=== PATIENT | female | born 1965 | race Caucasian/White ===

== ENCOUNTER 2023-10-21 06:56 | Outpatient (OUT) | payer BC, SELFPAY ==
--- NOTE | 2023-10-21 06:58 | MM_ITS ---
Patient Name: ESTELLA SHAH MR#: [id number] : 1965 Exam Date: 10/21/2023 Ordering Doctor: Non-Staff Physician RADIOLOGY REPORT PROCEDURE: MM TOMOSYNTHESIS SCREENING BI COMPARISON: MG MAMM SCREEN 3D [place] CAD, 10/12/2021. MG MAMM SCREEN 3D [place] CAD, 10/19/2022. INDICATIONS: Screening Calculator Name NCI Breast Cancer Risk Assessment Tool 5 Year Breast Cancer Risk 1.10% Lifetime Breast Cancer Risk 6.70% Personal Breast Cancer No Personal Ovarian Cancer No Treatments None Family Cancers None LOCATION: [facility] BREAST COMPOSITION: Scattered areas fibroglandular density. FINDINGS: DIAGNOSTIC CATEGORY 1--NEGATIVE. NO CHANGE FROM COMPARISON ASSESSMENT. Scattered benign-appearing calcifications are present. Scattered benign-appearing lymph nodes are present. RIGHT BREAST: No significant suspicious finding. LEFT BREAST: No significant suspicious finding. RECOMMENDATIONS: ROUTINE MAMMOGRAM AND CLINICAL EVALUATION IN 12 MONTHS. PLEASE NOTE: A NORMAL MAMMOGRAM DOES NOT EXCLUDE THE POSSIBILITY OF BREAST CANCER. A CLINICALLY SUSPICIOUS PALPABLE LUMP SHOULD BE BIOPSIED. Dictated by: Drew Flowers MD on 10/24/2023 at 07:54 Approved by: Drew Flowers MD on 10/24/2023 at 07:55
== END 2023-10-21 06:57 | disposition home or self-care (01) ==
LOC: MAMMO 06:56
PROVIDERS: PCP Internal Medicine
DX: Z12.31 Encounter for screening mammogram for malignant neoplasm of breast (principal)
CPT/HCPCS: 77063; 77067

== ENCOUNTER 2023-10-21 07:17 | Outpatient (OUT) | payer BC, SELFPAY ==
[2023-10-21 07:59] LABS: Chol HDL Ratio 2.2; Cholesterol 116 mg/dL (<=200); Glucose 88 mg/dL (74-106); HDL Cholesterol 53 mg/dL (40-60); Thyroid Stimulating Hormone 2.003 uIU/mL (0.358-3.740); Triglycerides 55 mg/dL (<=150)
== END 2023-10-21 07:18 | disposition home or self-care (01) ==
LOC: LAB 07:18
PROVIDERS: PCP Internal Medicine
DX: Z00.00 Encounter for general adult medical examination without abnormal findings (principal); Z12.31 Encounter for screening mammogram for malignant neoplasm of breast
CPT/HCPCS: 36415; 77063; 77067; 80061; 82306; 82947; 84443

== ENCOUNTER 2023-11-22 13:36 | Outpatient (OUT) | payer BC, SELFPAY ==
--- OUTSIDE RECORDS SUMMARY | 2023-11-22 13:57 | XMS_ITS | CCD ---
Author Name Unknown Address [address] [place] [address] Organization [facility] Care Team Providers Care Licensed Practical Nurse Clinic Nurse Name Role Phone LUPILLO, DR LAMBERT Admitting Unavailable LUPILLO, DR LAMBERT Primary Care Unavailable LUPILLO, DR LAMBERT Consulting Unavailable LUPILLO, DR LAMBERT Attending Unavailable LUPILLO, DR LAMBERT Primary Care Unavailable LUPILLO, DR LAMBERT Consulting Unavailable LUPILLO, DR LAMBERT Attending Unavailable BALL, DR LAMBERT Admitting Unavailable BALL, DR LAMBERT Admitting Unavailable LUPILLO, DR LAMBERT Primary Care Unavailable LUPILLO, DR LAMBERT Consulting Unavailable LUPILLO, DR LAMBERT Attending Unavailable LUPILLO, DR LAMBERT Primary Care Unavailable ESTEFANIA, DR MCBRIDE Attending Unavailable ERNÉ, DR TABATHA Lowery Consulting Unavailable ESTEFANIA, DR MCBRIDE Admitting Unavailable CROW, DR STANFORD Consulting Unavailable Hernesto Wesley Unavailable HERNESTO WESLEY Primary Care Physician Doug DIA Attending Unavailable HERNESTO WESLEY Referring Unavailable Allergies Allergy Classification Reported Allergen(s) Allergy Type Date of Onset Reaction(s) Facility (14 sources) Acetaminophen / HYDROcodone; Translations: [Acetaminophen / Hydrocodone] Drug Allergy Vomiting (disorder) General Surgery [facility] (14 sources) Lisinopril; Translations: [lisinopril] Drug Allergy Cough (finding) General Surgery [place] (5 sources) patient allergy list reviewed by nurse or physicia Propensity to adverse reactions 04-12-20 14 Comment:Done [facility] Other (5 sources) Vicodin *ANALGESICS - OPIOID* Propensity to adverse reactions Unknown [facility] Other Medications Current Medications Medication Drug Class(es) Dates Sig (Normalized) Sig (Original) amLODIPine 5 mg oral tablet (13 sources) Dihydropyridine Calcium Channel Daphne Start: 11-09-2023 take 1 tablet by mouth once daily amLODIPine 5 mg Tab 5 mg = 1 tab(s), Oral, Daily, Refills(s) 0 Start Date: 11/09/23 Status: Ordered amLODIPine Besyl ate 5 MG TAKE 1 TABLET DAILY Orally Once a day for 90 days Active 24 hr amphetamine aspartate 2.5 mg / amphetamine sulfate 2.5 mg / dextroamphetamine saccharate 2.5 mg / dextroamphetamine sulfate 2.5 mg extended release oral capsule (5 sources) Central Nervous System Stimulant Start: 04-28-2023 take 1 capsule by mouth every twenty-four hours Adderall XR 10 MG 1 capsule in the morning Orally Once a day for 30 days Apr, Active Start: 04-28-2023 take 1 capsule by [facility] every twenty-four hours Adderall XR 5 MG 1 capsule in the morning Orally Once a day for 30 days Apr, Active Start: 04-12-2023 take 1 capsule by [facility] every twenty-four hours Adderall XR 15 MG 1 capsule in the morning Orally Once a day for 30 days start 04/12Apr, Active atorvastatin 40 mg oral tablet (13 sources) HMG-CoA Reductase Inhibitor Start: 11-09-2023 take 1 tablet by mouth once daily atorvastatin 40 mg Tab 40 mg = 1 tab(s), Oral, Daily, Refills(s) 0 Start Date: 11/09/23 Status: Ordered Atorvastatin Damien cium 40 MG TAKE 1 TABLET BY MOUTH ONCE DAILY IN THE EVENING Orally Once a day for 90 days Active escitalopram 10 mg oral tablet (9 sources) Serotonin Reuptake Inhibitor Start: 10-13-2022 take 1 tablet by mouth every twenty-four hours Escitalopram Oxalate 10 MG 1 tablet Orally Once a day for 30 days Oct, Active estradiol 0.5 mg oral tablet (4 sources) Estrogen Start: 11-09-2023 take 1 tablet by mouth once daily estradiol 0.5 mg Tab 0.5 mg = 1 tab(s), Oral, Daily, Refills(s) 0 Start Date: 11/09/23 Status: [facility]-four hours Estradiol 0.5 MG 1 tablet once a day Active Hair, Skin, & Nails Gummies (1 source) Start: 11-15-2023 Hair, Skin, & Nails Gummies 2, Chewed, Daily, Refill(s) 0 Start Date: 11/15/23 Status: Ordered LORazepam 0.5 mg oral tablet (12 sources) Benzodiazepine Start: 10-18-2023 LORazepam 0.5 MG 1 tablet Orally before flying for 2 days Oct, Active Start: 10-14-2022 take 1 tablet by barbara th every eight hours as needed for anxiety LORazepam 0.5 MG 1 tablet Orally every 8 hours PRN anxiety for 30 days Oct, Active Magnesium glycinate (1 source) Start: 11-15-2023 magnesium glycinate 200 mg oral tablet 400 mg = 2 tab(s), Oral, Daily, Refills(s) 0 Start Date: 11/15/23 Status: Ordered meloxicam 15 mg oral tablet (9 sources) Nonsteroidal Anti-inflammatory Drug take 1 tablet by mouth every twenty-four hours Meloxicam 15 MG 1 tablet Orally Once a day Active metroNIDAZOLE 7.5 mg/ml topical cream (6 sources) Nitroimidazole Antimicrobial Start: 12-08-2022 metroNIDAZOLE 0.75 % 1 application Externally Twice a day for 30 days Dec, Active Start: 12-08-2022 metroNIDAZOLE 0.75 % 1 application Externally Twice a day for 30 days Dec, Active Problems Active Problems Problem Classification Problem Date Documented Da te Episodic/Chronic Acute bronchitis (10 sources) Acute bronchitis; Translations: [Acute bronchitis, unspecified] Onset: 04-12-2014 Episodic Anxiety disorders (20 sources) Acute stress disorder; Translations: [Acute stress reaction] Chronic Attention-deficit, conduct, and disruptive behavior disorders (18 sources) Attention deficit hyperactivity disorder, predominantly inattentive type; Translations: [Attention-deficit hyperactivity disorder, predominantly inattentive type] Onset: 02-05-2015 11-09-2023 Chronic Attention-deficit, conduct, and disruptive behavior disorders (1 source) Attention-deficit hyperactivity disorder, predominantly inattentive type Chronic Cardiac and circulatory congenital anomalies (20 sources) Congenital insufficiency of aortic valve; Translations: [Bicuspid aortic valve] Onset: 11-16-2022 Chronic Disorders of lipid metabolism (20 sources) Pure hypercholesterolemi a, unspecified; Translations: [Hypercholesterolem ia] Onset: 01-30-2022 Chronic Disorders usually diagnosed in infancy, childhood, or adolescence (5 sources) Behavioral and emotional disorder with onset in childhood; Translations: [Other specified behavioral and emotional disorders with onset usually occurring in childhood and adolescence] Chronic Essential hypertension (20 sources) Essential (primary) hypertension; Translations: [Essential hypertension] Onset: 11-21-2022 Chronic Headache; including migraine (20 sources) Migraine with aura; Translations: [Migraine with aura, not intractable, without status migrainosus] Onset: 09-09-2017 Chronic Influenza (5 sources) Upper respiratory tract infection due to Influenza; Translations: [Influenza due to unidentified influenza virus with other respiratory manifestations] Episodic Other gastrointestinal disorders (1 source) Other fecal abnormalities Episodic Other gastrointestinal disorders (1 source) Abnormal feces; Translations: [Other fecal abnormalities] Onset: 11-15-2023 Episodic Other screening for suspected conditions (not mental disorders or infectious disease) (7 sources) Encounter for screening mammogram for malignant neoplasm of breast; Translations: [Encounter for screening for malignant neoplasm of colon] Onset: 10-19-2022 Episodic Other upper respiratory disease (6 sources) Allergic rhinitis due to pollen; Translations: [Allergic rhinitis due to pollen] 11-09-2023 Chronic Sprains and strains (10 sources) Strain of muscle of right hip; Translations: [Strain of muscle, fascia and tendon of right hip, initial encounter] Resolved: 09-22-2022 Episodic Superficial injury; contusion (5 sources) Contusion of lower back; Translations: [Contusion of lower back and pelvis, initial encounter] Episodic Unclassified (1 source) Body mass index 20-24 - normal 11-15-2023 Past or Other Problems Problem Classification Problem Date Documented Date Episodic/Chronic Heart valve disorders (20 sources) Aortic stenosis, non-rheumatic ; Translations: [Nonrheumatic aortic (valve) stenosis] Onset: 10-01-2015 Resolved: 11-09-2023 Chronic Immunizations and screening for infectious disease (5 sources) Contact with and (suspected) exposure to other viral communicable diseases; Translations: [Contact with and (suspected) exposure to COVID-19] Resolved: 09-22-2022 Episodic Nausea and vomiting (5 sources) Nausea; Translations: [Nausea] Onset: 04-12-2014 Episodic Noninfectious gastroenteritis (5 sources) Non-infective enteritis and colitis; Translations: [Noninfective gastroenteritis and colitis, unspecified] Onset: 04-12-2014 Episodic Other connective tissue disease (5 sources) Pain in left foot; Translations: [Pain in left foot] Onset: 02-05-2015 Episodic Other connective tissue disease (5 sources) Achilles bursitis; Translations: [Achilles tendinitis, left leg] Resolved: 09-22-2022 Episodic Other lower respiratory disease (5 sources) Cough; Translations: [Cough, unspecified] Resolved: 09-22-2022 Episodic Other non-traumatic joint disorders (5 sources) Arthralgia of the ankle and/or foot; Translations: [Pain in left ankle and joints of left foot] Resolved: 08-24-2021 Episodic Other skin disorders (5 sources) Sebaceous cyst; Translations: [Sebaceous cyst] Onset: 09-20-2016 Episodic Spondylosis; intervertebral disc disorders; other back problems (5 sources) Disorder of sacrum; Translations: [Disorders of sacrum] Onset: 10-01-2015 Episodic Results Test Name Value Interpretation Reference Range Facility Consent for Procedure/Surger yon 11-16-2023 Consent for Procedure/Surgery [id number] #1.00TIFF [facility] Facesheeton 11-16-2023 Facesheet [id number]#1.00TIFF [facility] Insurance Correspondenceon 0 11-16-2023 Insurance Correspondence [id number] 4#1.00TIFF [facility] Ambulatory Visit Summaryon 0 11-15-2023 Ambulatory Visit Summary ESTELLA SHAH :1965 Visit Date:11/15/2023 Ambulatory Visit Instructions Your Diagnosis Positive colorectal cancer screening using Cologuard test Your Care Team Attending Physician - Doug DIA MD Primary Care Physician - HERNESTO WESLEY DO Referring Physician - HERNESTO WESLEY DO This Is Your Medications List Contact prescribing physician if questions or concerns amlodipine (amLODIPine 5 mg Tab) atorvastatin (atorvastatin 40 mg Tab) estradiol (estradiol 0.5 mg Tab) magnesium glycinate (magnesium glycinate 200 mg oral tablet) multivitamin (Hair, Skin, & Nails Gummies) Procedures Performed section, section, Cholecystectomy, ROEL BSO - Total abdominal hysterectomy and bilateral salpingo-oophorectom y. Discharge Vitals Heart Rate (Peripheral) 72 Respiratory Rate 16 Blood Pressure 116/78 Height 172.72 cm Height 68 in Weight 70 kg Weight 154 lb BMI 23.46 Medications What How Much When Instructions Unchanged amlodipine (amLODIPine 5 mg Tab) 1 Tablets By Mouth Every day Contact prescribing physician if questions or concerns Unchanged atorvastatin (atorvastatin 40 mg Tab) 1 Tablets By Mouth Every day Contact prescribing physician if questions or concerns Unchanged estradiol (estradiol 0.5 mg Tab) 1 Tablets By Mouth Every day Contact prescribing physician if questions or concerns Unchanged magnesium glycinate (magnesium glycinate 200 mg oral tablet) 2 Tablets By Mouth Every day Contact prescribing physician if questions or concerns Unchanged multivitamin (Hair, Skin, & Nails Gummies) 2 Chewed Every day Contact prescribing physician if questions or concerns Allergies Vicodin (Vomiting) lisinopril (Cough) Problems Ongoing - Any problem that you are currently receiving treatment for. Allergic rhinitis due to pollen Attention deficit hyperactivity disorder, predominantly inattentive type Bicuspid aortic valve BMI 23.0-23.9, adult Essential hypertension Hypercholesterolemia Migraine with aura Positive colorectal cancer screening using Cologuard test Historical - Any problem that you are no longer receiving treatment for. Aortic stenosis, non-rheumatic Patient Survey You may receive a survey via text or e-mail asking about your office visit. Please share your experience with us by completing your survey. We appreciate your feedback and thank you for choosing us for your care. Normal [facility] Physician Referralon 024 Physician Referral [id number] #1.00TIFF Normal [facility] ECHOCARDIO M/2D COMPLETEon 0 11-16-2022 ECHOCARDIO M/2D COMPLETE Patient: ESTELLA SHAH Exam Date: 11/16/2022 : 1965 Gender:F Ordering : DR HERNESTO WESLEY D.O. Admission #: [id number] Family : Order #: [id number] CLICK HERE TO VIEW EXAM ECHOCARDIOGRAM REPORT PROCEDURE: CARDIO PULMONARY ECHOCARDIO M/2D COMP INDICATIONS: Bicuspid aortic valve, hypertension COMPARISON: None. DESCRIPTION: COMPLETE ECHOCARDIOGRAM Real-time transthoracic echocardiography with 2D, M-mode, spectral and color flow Doppler performed. QUALITY: Technical quality was good. 68 139# BP 140/82 LEFT VENTRICLE: Normal chamber size. Normal left ventricular wall thickness. LV EF: Normal left ventricular ejection fraction, (>55%). DIASTOLIC: Normal diastolic function. ATRIAL SEPTUM: Inadequately seen. LEFT ATRIUM: Normal chamber size. RIGHT ATRIUM: Normal chamber size. RIGHT VENTRICLE: Normal chamber size. Normal right ventricular systolic function. TRICUSPID VALVE: Normal mobility and thickness. No stenosis with no regurgitation. Unable to assess right-sided pressures due to lack of measurable tricuspid regurgitation. MITRAL VALVE: Normal mobility and thickness. No evidence of mitral valve stenosis. There is no mitral annular calcification. Mild mitral regurgitation. AORTIC VALVE: Bicuspid valve per history; the valve is poorly seen. Doppler velocity suggest mild aortic valve stenosis. AVA1.6 cm2. Mild aortic regurgitation. AORTIC ROOT: Normal diameter and appearance. PULMONIC VALVE: Normal thickness and mobility. No stenosis. Trivial regurgitation. PERICARDIUM: No evidence of pericardial effusion. IVC: Collapses with inspirations. CONCLUSION: Global left ventricular systolic function is normal; visually estimated ejection fraction is 60 to 65%. No significant wall motion abnormalities. Normal diastolic function. The right ventricle is normal in size and systolic function. Mild mitral regurgitation. Mild aortic stenosis. Mild aortic regurgitation. Adult Echocardiography Procedure Report Left Ventricle LVEDD (3.7 - 5.6 cm): 3.88 cm LVESD (2.2 - 4.0 cm): 3.05 cm LVIVS thickness (0.6 - 1.2 cm): 0.91 cm LVPW thickness (0.5 - 1.0 cm): 0.82 cm e': 0.11 m/s E - e': 7.32 LVOT Max Gradient: 4.25 mm[Hg] Peak Velocity (LVOT): 1.03 m/s Mean Velocity (LVOT): 0.62 m/s LVOT Diameter 1.99 cm Left Atrium LA Volume Index (2D A2C): 35.92 ml, 35.92 ml Left Atrium Systolic Dimension: 2.54 cm Mitral Valve MV E to A Ratio: 1.03 Mitral Valve A-Wave Peak Velocity: 0.80 m/s Mitral Valve E-Wave Peak Velocity: 0.83 m/s Right Ventricle Aorta AO Root Diam: 2.67 cm Aortic Valve AoV Area (Peak Giorgio): 1.72 cm2, 1.72 cm2 AoV Area (VTI): 1.60 cm2, 1.60 cm2 Peak Velocity(Antegrade Flow): 1.87 m/s Peak Gradient(Antegrade Flow): 13.99 mm[Hg] Mean Velocity(Antegrade Flow): 1.25 m/s Mean Gradient(Antegrade Flow): 7.26 mm[Hg] Velocity Time Integral: 42.49 cm Tricuspid Valve Peak Velocity: 0.48 m/s Pulmonic Valve Peak Velocity: 0.91 m/s, 0.83 m/s Peak Gradient: 3.33 mm[Hg], 2.73 mm[Hg] Right Atrium Right Atrium Systolic Pressure: 21.32 ml, 21.32 ml Dictated by: Celso Ureña M.D. on 11/16/2022 at 12:18 Approved by: Celso Ureña M.D. on 11/16/2022 at 12:23 Normal [facility] CBC AUTO DIFFon 11-09-2022 BASO # 0.0 103/ul Normal 0.0-0.1 [facility] Comment on above: Performed By: #### C BC #### [facility] [address] [place] [address] Dr. Reina Carter Basophils/100 WBC (Bld) 0.8 % Normal 0.2-2.0 [facility] Comment on above: Performed By: #### C BC #### [facility] [address] [place] [address] Dr. Reina Carter EO # 0.1 103/ul Normal 0.0-0.7 [facility] Comment on above: Performed By: #### C BC #### [facility] [address] [place] [address] Dr. Reina Carter Eosinophils/100 WBC (Bld) 2.0 % Normal 0.9-7.0 [facility] Comment on above: Performed By: #### C BC #### [facility] [address] [place] [address] Dr. Reina Carter Erythrocyte distribution width (RBC) [Ratio] 13.2 % Normal 11.0-15.0 [facility] Comment on above: Performed By: #### C BC #### [facility] [address] [place] [address] Dr. Reina Carter Hematocrit (Bld) [Volume fraction] 42.7 % Normal 36.0-48.0 [facility] Comment on above: Performed By: #### C BC #### [facility] [address] [place] [address] Dr. Reina Carter Hemoglobin (Bld) [Mass/Vol] 13.7 g/dL Normal 12.0-16.0 [facility] Comment on above: Performed By: #### C BC #### [facility] [address] [place] [address] Dr. Reina Carter IG # 0.01 10e3/ul Normal 0.00-0.03 [facility] Comment on above: Performed By: #### C BC #### [facility] [address] [place] [address] Dr. Reina Carter IG % 0.2 % Normal 0.0-0.5 [facility] Comment on above: Performed By: #### C BC #### [facility] [address] [place] [address] Dr. Reina Carter LYMPH # 1.5 103/ul Normal 1.2-3.8 [facility] Comment on above: Performed By: #### C BC #### [facility] [address] [place] [address] Dr. Reina Carter Lymphocytes/100 WBC (Bld) 29.2 % Normal 20.5-60.0 [facility] Comment on above: Performed By: #### C BC #### [facility] [address] [place] [address] Dr. Reina Carter MANUAL DIFF REQ NO Normal [facility] Comment on above: Performed By: #### C BC #### [facility] [address] [place] [address] Dr. Reina Carter MCH (RBC) [Entitic mass] 28.7 pg Normal 26.7-34.0 [facility] Comment on above: Performed By: #### C BC #### [facility] [address] [place] [address] Dr. Reina Carter MCHC (RBC) [Mass/Vol] 32.1 g/dL Normal 29.9-35.2 [facility] Comment on above: Performed By: #### C BC #### [facility] [address] [place] [address] Dr. Reina Carter MCV (RBC) [Entitic vol] 89.5 fL Normal 81.0-99.0 [facility] Comment on above: Performed By: #### C BC #### [facility] [address] [place] [address] Dr. Reina Carter MONO # 0.3 103/ul Normal 0.3-0.8 [facility] Comment on above: Performed By: #### C BC #### [facility] [address] [place] [address] Dr. Reina Carter Monocytes/100 WBC (Bld) 6.7 % Normal 1.7-12.0 [facility] Comment on above: Performed By: #### C BC #### [facility] [address] [place] [address] Dr. Reina Carter NEUT # 3.0 103/ul Normal 1.4-6.5 [facility] Comment on above: Performed By: #### C BC #### [facility] [address] [place] [address] Dr. Reina Carter Neutrophils/100 WBC (Bld) 61.1 % Normal 43.0-75.0 [facility] Comment on above: Performed By: #### C BC #### [facility] [address] [place] [address] Dr. Reina Carter Platelet mean volume (Bld) [Entitic vol] 12.2 fL Normal 9.5-13.5 [facility] Comment on above: Performed By: #### C BC #### [facility] [address] [place] [address] Dr. Reina Carter PLT 208 103/ul Normal 150-450 [facility] Comment on above: Performed By: #### C BC #### [facility] [address] [place] [address] Dr. Reina Carter RBC 4.77 106/ul Normal 4.20-5.40 [facility] Comment on above: Performed By: #### C BC #### [facility] [address] [place], [place] [address] Dr. Reina Carter WBC 5.0 103/ul Normal 4.0-11.0 [facility] Comment on above: Performed By: #### C BC #### [facility] [address] [place], [place] [address] Dr. Reina Carter Complete Blood Count and Dif brannon 11-09-2022 Anisocytosis Ql (Bld) [facility] Other Basophilic stippling LM Ql (Bld) [facility] Other RBC morphology finding Nom (d) [facility] Other Complete Blood Count and Diff [facility] Other Comprehensive Metabolic Pane rex 11-09-2022 Albumin [Mass/Vol] 4.650841 g/dL 3.4-5.0 g/dL N [facility] Other Calcium [Mass/Vol] 9.9293091 mg/dL 8.5-10 .1 mg/dL [facility] Other CO2 [Moles/Vol] 30.22114202 mmol/L 21.0-3 2.0 mmol/L [facility] Other Creatinine [Mass/Vol] 0.71108875 mg/dL 0.55-1.02 mg/dL [facility] Other Potassium [Moles/Vol] 3.59302188 mmol/L 3.5-5.1 mmol/L [facility] Other Protein [Mass/Vol] 7.782213 g/dL 6.4-8.2 g/dL [facility] Other Urea nitrogen [Mass/Vol] 7.2479974 mg/dL 7.0-18.0 mg/dL [facility] Other Comprehensive Metabolic Panel see note [facility] Other Comprehensive Metabolic Panel 141 mmol/L 136-145 mmol/L [facility] Other Comprehensive Metabolic Panel 91 mg/dL 74-106 mg/dL [facility] Other Comprehensive Metabolic Panel >60 mL/min/1.73m2 >=60 mL/min/1.73m2 [facility] Other Comprehensive Metabolic Panel 1.1 mg/dL Critically high 0.2-1.0 mg/dL [facility] Other Comprehensive Metabolic Panel 3.5 g/dL [facility] Other LIPID PROFILEon 11-09-2022 CHOL-HDL RATIO NORM SEE BELOW Normal [facility] Comment on above: Result Comment: 3.3 - 4.4 LOW RISK 4.4 - 7.1 AVERAGE RISK 7.1 - 11.0 MODERATE RISK >11.0 HIGH RISK Performed By: #### L IPID, CMP #### [facility] [address] [place] [address] Dr. Reina Carter Cholesterol [Mass/Vol] 103 mg/dL <=200 mg/dL [facility] Comment on above: Performed By: #### L IPID, CMP #### [facility] [address] [place] [address] Dr. Reina Carter Cholesterol in HDL [Mass/Vol] 46 mg/dL 40-60 mg/dL [facility] Comment on above: Performed By: #### L IPID, CMP #### [facility] [address] [place] [address] [address] Reina Carter Cholesterol in LDL [Mass/Vol] 39.4 mg/dL Normal [facility] Comment on above: Performed By: #### L IPID, CMP #### [facility] [address] [place] [address] [address] Reina Carter Cholesterol.total/Ch olesterol in HDL [Mass ratio] 2.2 {ratio} [facility] Comment on above: Performed By: #### L IPID, CMP #### [facility] [address] [place] [address] [address] Reina Cartre HDL NORMAL > or = 60 mg/dl - LOW CARDIOVASCULAR RISK <40 mg/dl - HIGH CARDIOVASCULAR RISK Normal [facility] Comment on above: Performed By: #### L IPID, CMP #### [facility] [address] [place] [address] [address] Reina Carter LDL CALC NORMAL SEE BELOW Normal [facility] Comment on above: Result Comment: <100 mg/dl OPTIMAL 100 - 129 mg/dl NEAR OR ABOVE OPTIMAL 130 - 159 mg/dl BORDERLINE HIGH 160 - 189 mg/dl HIGH >190 mg/dl VERY HIGH Performed By: #### L IPID, CMP #### [facility] [address] [place] [address] [address] Reina Carter Triglyceride [Mass/Vol] 88 mg/dL <=150 mg/dL [facility] Comment on above: Performed By: #### L IPID, CMP #### [facility] [address] [place] [address] [address] Reina Carter VLDL CALC 17.6 mg/dL Normal [facility] Comment on above: Performed By: #### L IPID, CMP #### [facility] [address] [place] [address] [address] Reina Carter Lipid Panelon 11-09-2022 Lipid Panel > or = 60 mg/dl - LOW CARDIOVASCULAR RISK <40 mg/dl - HIGH CARDIOVASCULAR RISK [facility] Other Lipid Panel SEE BELOW [facility] Other Lipid Panel 39.4 mg/dL [facility] Other Lipid Panel 17.6 mg/dL [facility] Other PROF 14(COMP METB)on 023 Albumin [Mass/Vol] 4.0 g/dL Normal 3.4-5.0 [facility] Comment on above: Performed By: #### L IPID, CMP #### [facility] [address] [place] [address] [address] Reina Carter Albumin/Globulin [Mass ratio] 1.1 {ratio} [facility] Comment on above: Performed By: #### L IPID, CMP #### [facility] [address] [place] [address] [address] Reina Carter ALP [Catalytic activity/Vol] 91 U/L 46-116 U/L [facility] Comment on above: Performed By: #### L IPID, CMP #### [facility] [address] [address] [address] Reina Carter ALT [Catalytic activity/Vol] 33 U/L 14-59 U/L [facility] Comment on above: Performed By: #### L IPID, CMP #### [facility] [address] [address] [address] Reina Carter Anion gap [Moles/Vol] 11.5 mmol/L [facility] Comment on above: Performed By: #### L IPID, CMP #### [facility] [address] [place] [address] Dr. Reina Carter AST [Catalytic activity/Vol] 15 U/L 15-37 U/L [facility] Comment on above: Performed By: #### L IPID, CMP #### [facility] [address] [address] [address] Reina Carter Bilirubin [Mass/Vol] 1.1 mg/dL Critically high 0.2-1.0 [facility] Comment on above: Performed By: #### L IPID, CMP #### [facility] [address] [place] [address] Dr. Reina Carter Calcium [Mass/Vol] 9.1 mg/dL Normal 8.5-10.1 [facility] Comment on above: Performed By: #### L IPID, CMP #### [facility] [address] [place] [address] Dr. Reina Carter Chloride [Moles/Vol] 103 mmol/L 98-107 mmol/L [facility] Comment on above: Performed By: #### L IPID, CMP #### [facility] [address] [place] [address] Dr. Reina Carter CO2 [Moles/Vol] 30.4 mmol/L Normal 21.0-32.0 [facility] Comment on above: Performed By: #### L IPID, CMP #### [facility] [address] [address] [address] Reina Caretr Creatinine [Mass/Vol] 0.84 mg/dL Normal 0.55-1.02 [facility] Comment on above: Performed By: #### L IPID, CMP #### [facility] [address] [address] [address] Reina Carter EGFR-AF GABONESE >60 Normal >=60 [facility] Comment on above: Performed By: #### L IPID, CMP #### [facility] [address] [address] [address] Reina Carter EGFR-NON AF GABONESE >60 Normal >=60 [facility] Comment on above: Performed By: #### L IPID, CMP #### [facility] [address] [address] [address] Reina Carter Globulin (S) [Mass/Vol] 3.5 g/dL Normal [facility] Comment on above: Performed By: #### L IPID, CMP #### [facility] [address] [address] [address] Reina Carter Glucose [Mass/Vol] 91 mg/dL Normal 74-106 [facility] Comment on above: Performed By: #### L IPID, CMP #### [facility] [address] [address] [address] Reina Carter Potassium [Moles/Vol] 3.9 mmol/L Normal 3.5-5.1 [facility] Comment on above: Performed By: #### L IPID, CMP #### [facility] [address] [address] [address] Reina Carter Protein [Mass/Vol] 7.5 g/dL Normal 6.4-8.2 [facility] Comment on above: Performed By: #### L IPID, CMP #### [facility] [address] [address] [address] Reina Carter Sodium [Moles/Vol] 141 mmol/L Normal 136-145 [facility] Comment on above: Performed By: #### L IPID, CMP #### [facility] [address] [place], [place] [address] Dr. Reina Carter Urea nitrogen [Mass/Vol] 7.0 mg/dL Normal 7.0-18.0 [facility] Comment on above: Performed By: #### L IPID, CMP #### [facility] [address] [place], [place] [address] Dr. Reina Carter Urea nitrogen/Creatinine [Mass ratio] 8.3 mg/mg [facility] Comment on above: Performed By: #### L IPID, CMP #### [facility] [address] [place], [place] [address] Dr. Reina Carter MG MAMM SCREEN 3D HERBERTH CADon 10-19-2022 MG MAMM SCREEN 3D HERBERTH CAD Patient: ESTELLA SHAH Exam Date: 10/19/2022 : 1965 Gender:F Ordering : DR HIEN MARIA [facility] Admission #: [id number] Family : DR RAE MAC M.D. Order #: [id number] CLICK HERE TO VIEW EXAM RADIOLOGY REPORT PROCEDURE: MAMMOGRAM SCREENING 3D BILATERAL CAD COMPARISON: MG MAMM LT DIAG FU, 10/13/2020. MG MAMM SCREEN 3D HERBERTH CAD, 10/12/2021. INDICATIONS: Screening mammography Calculator Name NCI Breast Cancer Risk Assessment Tool 5 Year Breast Cancer Risk 1.00% Lifetime Breast Cancer Risk 6.90% Personal Breast Cancer No Personal Ovarian Cancer No Treatments None Family Cancers None LOCATION: [facility] BREAST COMPOSITION: Scattered areas fibroglandular density. FINDINGS: DIAGNOSTIC CATEGORY 1--NEGATIVE. NO CHANGE FROM COMPARISON ASSESSMENT. Scattered benign-appearing nodules are present. Scattered benign-appearing calcifications are present. RIGHT BREAST: No significant suspicious finding. LEFT BREAST: No significant suspicious finding. RECOMMENDATIONS: ROUTINE MAMMOGRAM AND CLINICAL EVALUATION IN 12 MONTHS. PLEASE NOTE: A NORMAL MAMMOGRAM DOES NOT EXCLUDE THE POSSIBILITY OF BREAST CANCER. A CLINICALLY SUSPICIOUS PALPABLE LUMP SHOULD BE BIOPSIED. Dictated by: Tabatha Flowers MD on 10/20/2022 at 07:10 Approved by: Tabatha Flowers MD on 10/20/2022 at 07:12 Normal [facility] CHOLESTEROL TOTALon 04-30-20 22 Cholesterol [Mass/Vol] 119 mg/dL Normal <=200 [facility] Comment on above: Performed By: #### A LT, CHOL #### [facility] [address] [place] [address] Dr. Reina Carter [facility] 01-30-2022 ALT [Catalytic activity/Vol] 34 U/L Normal 14-59 [facility] Comment on above: Performed By: #### A LT, CHOL #### [facility] [address] [address] [address] eRina Carter Vital Signs Date Time Vital Sign Value Performing Clinician Facility 11-15-2023 15:15-0500 Blood Pressure Location [facility] 11-15-2023 15:15-0500 Diastolic blood pressure 78 mm[Hg] [facility] 11-15-2023 15:15-0500 Heart rate 72 /min [facility] 11-15-2023 15:15-0500 Respiratory rate 16 /min [facility] 11-15-2023 15:15-0500 Systolic blood pressure 116 mm[Hg] [facility] 11-03-2023 15:24-0500 Body height 172.72 cm Hernesto Ball Other [facility] Other 10-18-2023 15:30-0500 Body height 172.72 cm Hernesto Ball Other [facility] Other 10-18-2023 15:30-0500 Body mass index (BMI) [Ratio] 22.96 kg/m2 Hernesto Ball Other [facility] Other 10-18-2023 15:30-0500 Body weight 68.49 kg Hernesto Ball Other [facility] Other 10-18-2023 15:30-0500 Diastolic blood pressure 73 mm[Hg] Hernesto Ball Other [facility] Other 10-18-2023 15:30-0500 Systolic blood pressure 120 mm[Hg] Hernesto Ball Other [facility] Other 10-13-2022 16:30-0500 Body height 172.72 cm Hernesto Ball Other [facility] Other 10-13-2022 16:30-0500 Body mass index (BMI) [Ratio] 22.44 kg/m2 Hernesto Ball Other [facility] Other 10-13-2022 16:30-0500 Body weight 66.95 kg Hernesto Ball Other [facility] Other 10-13-2022 16:30-0500 Diastolic blood pressure 86 mm[Hg] Hernesto Ball Other [facility] Other 10-13-2022 16:30-0500 Respiratory rate 12 /min Hernesto Ball Other [facility] Other 10-13-2022 16:30-0500 Systolic blood pressure 126 mm[Hg] Hernesto Ball Other [facility] Other Encounters Encounter Date Encounter Type Care Provider Facility Start: 11-15-2023 End: 11-16-2023 ambulatory Doug DIA Facility:[facility] Start: 11-15-2023 End: 11-15-2023 Patient encounter procedure Doug DIA General Surgery [facility] Start: 11-07-2023 ambulatory Doug DIA Facility:[facility] Start: 11-03-2023 End: 11-03-2023 ambulatory Hernesto Ball Other [facility] Other Start: 11-03-2023 Telephone encounter Hernesto Ball [facility] Start: 11-01-2023 End: 11-01-2023 ambulatory Hernesto Ball Other [facility] Other Start: 11-01-2023 Telephone encounter Hernesto Ball [facility] Start: 10-18-2023 End: 10-18-2023 ambulatory Hernesto Ball Other [facility] Other Start: 10-18-2023 Encounter for genera l adult medical examination without abnormal findings Hernesto Wesley [facility] Start: 10-18-2023 Periodic preventive med est patient 40-64yrs Hernesto Wesley [facility] Start: 09-08-2023 End: 09-08-2023 ambulatory Hernesto Wesley Other [facility] Other Start: 09-08-2023 Telephone encounter Hernesto Ball [facility] Start: 04-28-2023 End: 04-28-2023 ambulatory Hernesto Lupillo Other [facility] Other Start: 04-28-2023 Telephone encounter Hernesto Ball [facility] Start: 04-12-2023 End: 04-12-2023 ambulatory Hernesto Wesley Other [facility] Other Start: 04-12-2023 Telephone encounter Hernesto Ball [facility] Start: 12-08-2022 End: 12-08-2022 ambulatory Hernesto Ball Other [facility] Other Start: 12-08-2022 Telephone encounter Hernesto Ball [facility] Start: 11-17-2022 End: 11-17-2022 ambulatory Hernesto Ball Other [facility] Other Start: 11-17-2022 Telephone encounter Hernesto Ball [facility] Start: 11-16-2022 Telephone encounter Hernesto Ball [facility] Start: 11-16-2022 End: 11-17-[address] HERNESTO WESLEY Facility:[facility] Start: 11-10-2022 Encounter for genera l adult medical examination without abnormal findings DR HERNESTO WESLEY [facility] Start: 11-09-2022 End: 11-10-[address] HERNESTO WESLEY Facility:[facility] Start: 11-09-2022 End: 11-10-2022 Encounter for general adult medical examination without abnormal findings DR HERNESTO WESLEY Facility:[facility] Start: 11-08-2022 End: 11-08-2022 ambulatory Hernesto Wesley Other [facility] Other Start: 11-08-2022 Encounter for genera l adult medical examination without abnormal findings Hernesto Wesley [facility] Start: 11-08-2022 Telephone encounter Hernesto SCOTT [facility] Start: 10-19-2022 End: 10-20-[address] HERNESTO WESLEY Facility:[facility] Start: 10-14-2022 End: 10-14-2022 ambulatory Hernesto Wesley Other [facility] Other Start: 10-14-2022 Telephone encounter Hernesto SCOTT [facility] Start: 10-13-2022 End: 10-13-2022 ambulatory Hernesto Wesley Other [facility] Other Start: 10-13-2022 Patient encounter procedure Hernesto Wesley [facility] Start: 10-13-2022 Periodic preventive med est patient 40-64yrs Hernesto Wesley [facility] Start: 01-30-2022 End: 01-31-[address] HERNESTO WESLEY Facility:[facility] Start: 08-24-2021 Adult health examination Hernesto Wesley Other [facility] Other Procedures Date Procedure Procedure Detail Performing Clinician Start: 09-09-2017 General examination of patient Hernesto Lupillo Other section Doug Rubin Cholecystectomy Doug DIA Depression screening Anupama Wesley Other Total abdominal hyst erectomy with bilateral salpingo-oophorectomy Doug DIA Immunizations Immunization Date Immunization Notes Care Provider Tamiko richmond 08-04-2023 influenza virus vaccine, unspecified formulation Doug DIA [facility] [place] 08-22-2021 SARS-CoV-2 (COVID-19 ) mRNA-1273 vaccine Doug DIA [facility] 01-03-2021 SARS-CoV-2 (COVID-19 ) mRNA-1273 vaccine Doug DIA [facility] [place] 12-06-2020 SARS-CoV-2 (COVID-19 ) mRNA-1273 vaccine Doug DIA [facility] [place] Payers Date Payer Category Payer Private Health Insurance 1965 Unknown [id number] [id number] 1965 Unknown [id number] [id number] [id number] 1965 Unknown [id number] [id number] [id number] 1965 Unknown [id number] 2.16.84 [id number] 1965 Unknown [id number] 2.16.8 [id number] 1965 Unknown [id number] [id number] 1958 Unknown [id number] Social History Date Type Detail Facility Sex Assigned At [facility] Start: 11-15-2023 Tobacco smoking status Never s moked tobacco (finding) General Surgery [facility] Tobacco smoking status Never Gener al Surgery [facility] Functional Status Date Assessment Result Facility 11-15-2023 Functional Status N/A General [facility] [place] Clinical Notes 10-13-2022 to 11-15-2023 Note Date & Type Note Facility 11-15-2023 Note Chief Complaint consultation for positive Cologuard HPI Staff 58 year old female presents on consultation from Dr. Wesley for positive Cologuard. Denies abdominal or rectal pain. No rectal bleeding or change in bowel habits. Denies nausea or vomiting. No unexplained weight loss. Never had colonoscopy in the past. No known family history of colon cancer. History of Present Illness 58 yo female with h/o htn, hypercholesterolemia, migraines, referred for Positive Cologuard; denies change in bms or blood in stools, no abd complaints; abd operations significant for x 2, cholecystectomy, ROEL with bso; no asa or NSAID use; no fmhx of GI malignancy or IBD; no tobacco use. Review of Systems PHQ Score Initial Depression Screen Score: 0 SCORE ROS - Provider Constitutional: no fever, no sweats, no weight loss. Eyes: no glasses, no blurred vision, no visual loss. ENMT: no dentures, no hoarseness, no swallowing difficulties, no hearing loss, no ear infection(s), no nose bleeds. Cardiovascular: normal blood pressure, no chest pain, regular heartbeat, no heart murmur. Respiratory: no shortness of breath, no cough, no asthma, no wheezing. Gastrointestinal: no nausea, no vomiting, no diarrhea, no constipation, no blood in stool, no change in bowel habits, no abdominal pain, no hepatitis. Genitourinary: no kidney stones, no urine infection, no dysuria. Musculoskeletal: no pain, no weakness. Skin: no changing moles, no rash, no skin lumps. Neurologic: no seizures, no epilepsy, no headache. Psychiatric: no emotional or psychiatric problem. Heme/Lymph: no bleeding problems, no anemia, no blood clots, no transfusions. Allergy/Immunologic: no swollen lymph nodes/glands, no IV drug abuse. Other: Additional ROS info: Except as noted in the above Review of Systems and in the History of Present Illness, all other systems have been reviewed and are negative or noncontributory. Physical Exam Vitals & Measurements HR: 72(Peripheral) RR: 16 BP: 116/78 HT: 68 in HT: 172.72 cm WT: 70 kg WT: 154 lb BMI: 23.46 HEENT: normal conjunctiva, sclera clear, no scleral icterus, EOM intact, PERRLA, oral mucosa moist without lesions. Neck: trachea midline, no mass, symmetric, no thyromegaly or nodules, no adenopathy Respiratory: lungs CTA, respirations non labored. Cardiovascular: regular rate and rhythm, no murmur, no pedal edema or varicosities. Gastrointestinal: soft, non distended, no tenderness, no masses, no palpable hernias, diastasis recti no, no hepatosplenomegaly; normal bs Lymphatic: no cervical adenopathy, no supraclavicular adenopathy. Musculoskeletal: normal gait, digits and nails without infection, nodes, cyanosis, clubbing. Skin: no rashes, no lesions, no ulcers, no subcutaneous nodules, induration. Psychiatric/Neuro: oriented to time, place, person, judgement normal, affect appropriate for age, insight intact, no focal deficits. Tests: labs reviewed, review of old records completed , Discussed surgical options, risks, and possible complications with patient. Assessment/Plan 1. Positive colorectal cancer screening using Cologuard test (R19.5: Other fecal abnormalities) plan colonoscopy under anesthesia, informed consent obtained. Follow-up No qualifying data available Problem List/Past Medical History Ongoing Allergic rhinitis due to pollen Attention deficit hyperactivity disorder, predominantly inattentive type Bicuspid aortic valve BMI 23.0-23.9, adult Essential hypertension Hypercholesterolemia Migraine with aura Positive colorectal cancer screening using Cologuard test Historical Aortic stenosis, non-rheumatic Procedure/Surgical History section, section, Cholecystectomy, ROEL BSO - Total abdominal hysterectomy and bilateral salpingo-oophorectomy. Medications amLODIPine 5 mg Tab, 5 mg= 1 tab(s), Oral, Daily atorvastatin 40 mg Tab, 40 mg= 1 tab(s), Oral, Daily estradiol 0.5 mg Tab, 0.5 mg= 1 tab(s), Oral, Daily Hair, Skin, & Nails Gummies, 2, Chewed, Daily magnesium glycinate 200 mg oral tablet, 400 mg= 2 tab(s), Oral, Daily Allergies Vicodin (Vomiting) lisinopril (Cough) Social History Alcohol - Denies Alcohol Use, 11/15/2023 Substance Abuse - Denies Substance Abuse, 11/15/2023 Tobacco Never (less than 100 in lifetime) Tobacco Use:. Never Smokeless Tobacco Use:., 11/15/2023 Family History Diabetes mellitus type 2: Mother. Heart disease: Father. Stroke: Mother. Immunizations Vaccine Date Status influenza virus vaccine, inactivated 08/04/2023 Recorded SARS-CoV-2 (COVID-19) mRNA-1273 vaccine 08/22/2021 Recorded SARS-CoV-2 (COVID-19) mRNA-1273 vaccine 01/03/2021 Recorded SARS-CoV-2 (COVID-19) mRNA-1273 vaccine 12/06/2020 Recorded [facility] Comment on above: Result Comment: Elec tronically Signed By: JEREMIAH MCDANIEL, Doug Mo\Date and Time Signed: 11/15/23 15:40 EST 11-03-2023 Evaluation note Encounter Date Diagnosis Assessment Notes Nov, Positive colorectal cancer screening using Cologuard test (ICD-10 - R19.5) Nov, Screening for colon cancer (ICD-10 - Z12.11) [facility] Other 01-16-2024 Evaluation note* Encounter Date Diagnosis Assessment Notes Treatment Notes Treatment Clinical Notes Oct, Nonrheumatic aortic valve stenosis (ICD-10 - I35.0) Grade 3/6 pansystolic murmur She denies CP, tachycardia or syncope. Echocardiogram completed last year w/ mild stenosis. Oct, Wellness examination (ICD-10 - Z00.00) Healthy diet and exercise. Reviewed age-appropriate preventive testing recommended. Oct, Bicuspid aortic valve (ICD-10 - Q23.1) Echo: LVEF 60%, mild MR, , AI - 2022 Increases risk for aortic stenosis. Discussed w/ patient, requires routine monitoring of symptoms Continue surveillance Echocardiogram every 2-3 years. Oct, Primary hypertension (ICD-10 - I10) This patient is instructed to consume a healthy, low-fat, low-salt diet. They are also encouraged to continue exercise to achieve/maintain a normal BMI. She would like to d/c medications - suggested decreasing to 1/2 tab and if BP remains < 140/90, she can stop. - restart if BP > 140/90 Oct, Elevated cholesterol (ICD-10 - E78.00) Instructed on diet and exercise with continued statin therapy.Discussed the beneficial effects of lowering cholesterol in reducing the risk for cerebrovascular and cardiovascular disease. Oct, Migraine with aura and without status migrainosus, not intractable (ICD-10 - G43.109) Controlled, no treatment necessary at this time. Taking Magnesium supplement. No ER visits for AE Oct, Fear of flying (ICD-10 - F40.243) Requesting sedative or the flight Aware that this may result in sedation Oct, Colon cancer screening (ICD-10 - Z12.11) Sent for Cologuard She denies change in bowel habits, melena or hematochezia [facility] Other 02-14-2023 Evaluation note* Encounter Date Diagnosis Assessment Notes Treatment Notes Treatment Clinical Notes Nov, Bicuspid aortic valve (ICD-10 - Q23.1) Echo: LVEF 55%, KATRIN 1.6cm, Velocity 125, pk/mean 13/7 - 11/2022 [facility] Other 02-06-2023 Evaluation note* Encounter Date Diagnosis Assessment Notes Treatment Notes Treatment Clinical Notes Nov, Wellness examination (ICD-10 - Z00.00) Nov, Bicuspid aortic valve (ICD-10 - Q23.1) [facility] Other 01-12-2023 Evaluation note* Encounter Date Diagnosis Assessment Notes Treatment Notes Treatment Clinical Notes Oct, Acute stress reaction (ICD-10 - F43.0) [facility] Other 01-11-2023 Evaluation note* Encounter Date Diagnosis Assessment Notes Treatment Notes Treatment Clinical Notes Oct, Nonrheumatic aortic valve stenosis (ICD-10 - I35.0) She remains asymptomatic w/o CP, syncope or tachycardia. She was educated on the risk of and surgical treatment available. Oct, Annual physical exam (ICD-10 - Z00.00) Oct, Bicuspid aortic valve (ICD-10 - Q23.1) No symptoms to suggest . Serial echocardiogram to measure velocity, gradients and valve area Oct, Primary hypertension (ICD-10 - I10) This patient is instructed to consume a healthy, low-fat, low-salt diet. They are also encouraged to continue exercise to achieve/maintain a normal BMI. Oct, Elevated cholesterol (ICD-10 - E78.00) Diet and exercise with continued statin therapy. Oct, Generalized anxiety disorder (ICD-10 - F41.1) Healthy diet, exercise, keep active and consistent sleep routine. Suggested counseling. DIscussed initiating SSRI and use of Ativan for acute stress. Oct, Acute stress reaction (ICD-10 - F43.0) Oct, Migraine with aura and without status migrainosus, not intractable (ICD-10 - G43.109) Diet instructions, exercise and Migraine symptoms remain unchanged. She is to continue to monitor migraines and take note of any change in pattern or nature of the headaches. If she were to develop a significant change in her headache, she should seek care. Oct, Attention deficit hyperactivity disorder (ADHD), predominantly inattentive type (ICD-10 - F90.0) Patient is stable. She has stopped medication due to ADR Healthy diet and exercise [facility] Other Evaluation + Plan note No data available for this section General Surgery [facility] Evaluation noteNo InformationNort [employer] Other History general Narrative - Reported* Type Description Date Medical History Essential hypertension Medical History Pure hypercholesterolemia Medical History Depression screening Medical History Encounter for wellness examinati on Medical History Bicuspid aortic valve Medical History Seasonal allergic rhinitis due t o pollen Medical History Migraine with aura a nd without status migrainosus, not intractable Medical History Shoulder strain, left, initial e ncounter Medical History Attention deficit disorder (ADD) in adult Medical History Screening for colon cancer Medical History Acute bronchitis due to other sp ecified organisms Medical History Influenza Surgical History hysterectomy, total abdominal w ith BSO Hospitalization History see surgical history [facility] Other Hospital Discharge instructions No data available for this section General Surgery [facility] Progress note No data available for this section General Surgery [facility] Reason for referral (narrative)* Reason Referral for screeni ng colonoscopy Diagnosis 1 Positive colorectal cancer screening using Cologuard test (R19.5) Referral Organization [facility] Referring Provider First Name Hernesto Referring Provider Last Name Lupillo Referring Provider Specialty Internal Me dicine Referred Organization [facility] Referred Provider Doug Dia Ref[facility] [address] [facility] [place] Referred Provider Specialty Surgery Referral Priority Routine General Notes Asymptomatic, low ri sk patient with positive Cologuard test. She denies change in appetite, weight or bowel habits. She denies abdominal pain, melena or hematochezia. [facility] Other Summary Purpose Family History No Family History Records Found No data available for this section No Family History Records Found Advance Directives No Advanced Directives Records FoundNo Advanced Directives Records Found Additional Source Comments INFORMATION SOURCE (unrecogn ized section and content) DATE CREATED AUTHOR 11/21/2022 [facility] DATE CREATED AUTHOR AUTHOR'S ORGANIZ ATION 11/17/2023 [facility] REASON FOR VISIT (unrecogniz ed section and content) WELLNESSprescriptions??Lab/E choNo InformationEcho Resultsprescription refillRefillrefillNo InformationWellnessCologuard resultsNo Information Patient Care team informatio n (unrecognized section and content) Personnel Name: HERNESTO WESLEY DO Address: Address: [address], [place], [place] [address] FOR RECORDS PERTAINING TO PATIENTS WHO ARE OR HAVE BEEN ENROLLED IN A CHEMICAL DEPENDENCY/SUBSTANCEABUSE PROGRAM, SOME INFORMATION MAY BE OMITTED. This clinical summary was aggregated from multiple sources. Caution should be exercised in using it in the provision of clinical care. This summary normalizes information from multiple sources, and as a consequence, information in this document may materially change the coding, format and clinical context of patient data. In addition, data may be omitted in some cases. CLINICAL DECISIONS SHOULD BE BASED ON THE PRIMARY CLINICAL RECORDS. [employer] provides no warranty or guarantee of the accuracy or completeness of information in this document.
== END 2023-11-22 13:37 | disposition home or self-care (01) ==
LOC: PST 13:36
PROVIDERS: PCP Internal Medicine; Visit Provider Surgery
DX: R19.5 Other fecal abnormalities (principal)

== ENCOUNTER 2023-11-30 07:38 | Day surgery (SDC) | payer BC, SELFPAY ==
--- NOTE | 2023-11-30 | OP_ITS ---
OPERATION DATE: 11/30/2023 PREOPERATIVE DIAGNOSIS: Positive Cologuard. POSTOPERATIVE DIAGNOSIS: Normal colonoscopy to cecum. PROCEDURE: Colonoscopy to cecum. SURGEON: Doug Dia M.D. ANESTHESIA: Monitored anesthesia care. ESTIMATED BLOOD LOSS: Zero. INDICATIONS AND CONSENT: Patient is a 58-year-old female presents for colorectal screening. Indications, risks, benefits, alternatives of proceeding with colonoscopy were explained extensively to the patient, including the risks of bleeding, colon perforation or anesthetic complications. All of her questions were answered. Informed consent was obtained. PROCEDURE: Patient brought to the operating room, placed in the left lateral decubitus position. Monitored anesthesia care was provided. Rectal exam was performed which showed no masses or blood. The scope was inserted into the anal canal. Under direct visualization was advanced. With the aid of abdominal compression, it was advanced to the cecum where cecal markings were clearly identified. There was noted to be a good prep. Upon withdrawal of the scope, mucosal surfaces were carefully examined. There were no mass lesions or polyps. No inflammatory changes or ulcerations. Rare sigmoid diverticula without informatory changes or scarring. Within the rectum, there was no significant hemorrhoidal disease. Scope was then withdrawn. Patient tolerated procedure well, was sent to recovery room in good condition.follow up screening colonoscopy recommended in 10 years. CC: Dr. Gerardo LORENZ
--- OUTSIDE RECORDS SUMMARY | 2023-11-30 07:40 | XMS_ITS | CCD ---
Author Name Unknown Address [address] [place] [address] Organization [facility] Care Team Providers Care Digital Field Service Technician Name Role Phone LUPILLO, DR LAMBERT Admitting [...] Care Unavailable ESTEFANIA, DR MCBRIDE Attending Unavailable RENÉ, DR TABATHA Lowery Consulting Unavailable ESTEFANIA, DR MCBRIDE Admitting Unavailable CROW, DR STANFORD Consulting Unavailable Hernesto Wesley Unavailable HERNESTO WESLEY Primary Care Physician Doug DIA Attending Unavailable HERNESTO WESLEY Referring Unavailable Allergies Allergy Classification Reported Allergen(s) Allergy Type Date of Onset Reaction(s) Facility (14 sources) Acetaminophen / HYDROcodone; Translations: [Acetaminophen / Hydrocodone] Drug Allergy Vomiting (disorder) [facility] [place] (14 sources) Lisinopril; Translations: [lisinopril] Drug Allergy Cough (finding) [facility] [place] (5 sources) patient allergy list reviewed by nurse or physicia Propensity to adverse reactions 04-12-20 14 Comment:Done [facility] Other (5 sources) Vicodin *ANALGESICS - OPIOID* Propensity to adverse reactions Unknown [facility] Other Medications Current Medications Medication Drug Class(es) [...] Active Start: 04-28-2023 take 1 capsule by [facility] every twenty-four hours Adderall XR 5 MG 1 capsule in the morning Orally Once a day for 30 days Apr, Active Start: 04-12-2023 take 1 capsule by [facility] every twenty-four hours Adderall XR 15 MG [...] for Procedure/Surger yon 11-16-2023 Consent for Procedure/Surgery [id number] #1.00TIFF [facility] Facesheeton 11-16-2023 Facesheet [id number] 4#1.00TIFF [facility] Insurance Correspondenceon 0 11-16-2023 Insurance Correspondence [id number] 4#1.00TIFF [facility] Ambulatory Visit Summaryon 0 11-15-2023 Ambulatory Visit [...] for choosing us for your care. Normal [facility] Physician Referralon 024 Physician Referral [id number] #1.00TIFF Normal [facility] ECHOCARDIO M/2D COMPLETEon 0 11-16-2022 ECHOCARDIO M/2D COMPLETE Patient: ESTELLA SHAH Exam Date: 11/16/2022 : 1965 Gender:F Ordering : DR HERNESTO WESLEY D.O. Admission #: [id number] Family : Order #: [id number] CLICK HERE TO VIEW EXAM ECHOCARDIOGRAM REPORT [...] M.D. on 11/16/2022 at 12:23 Normal [facility] CBC AUTO DIFFon 11-09-2022 BASO # 0.0 103/ul Normal 0.0-0.1 [facility] Comment on above: Performed By: #### C BC #### [facility] [address] [place] [address] Dr. Reina Carter Basophils/100 WBC (Bld) 0.8 % Normal 0.2-2.0 [facility] Comment on above: Performed By: #### C BC #### [facility] [address] [place] [address] Dr. Reina Carter EO # 0.1 103/ul Normal 0.0-0.7 [facility] Comment on above: Performed By: #### C BC #### [facility] [address] [place] [address] Dr. Reina Carter Eosinophils/100 WBC (Bld) 2.0 % Normal 0.9-7.0 [facility] Comment on above: Performed By: #### C BC #### [facility] [address] [place] [address] Dr. Reina Carter Erythrocyte distribution width (RBC) [Ratio] 13.2 % Normal 11.0-15.0 [facility] Comment on above: Performed By: #### C BC #### [facility] [address] [place] [address] Dr. Reina Carter Hematocrit (Bld) [Volume fraction] 42.7 % Normal 36.0-48.0 [facility] Comment on above: Performed By: #### C BC #### [facility] [address] [place] [address] Dr. Reina Carter Hemoglobin (Bld) [Mass/Vol] 13.7 g/dL Normal 12.0-16.0 [facility] Comment on above: Performed By: #### C BC #### [facility] [address] [place] [address] Dr. Reina Carter IG # 0.01 10e3/ul Normal 0.00-0.03 [facility] Comment on above: Performed By: #### C BC #### [facility] [address] [place] [address] Dr. Reina Carter IG % 0.2 % Normal 0.0-0.5 [facility] Comment on above: Performed By: #### C BC #### [facility] [address] [place] [address] Dr. Reina Carter LYMPH # 1.5 103/ul Normal 1.2-3.8 [facility] Comment on above: Performed By: #### C BC #### [facility] [address] [place] [address] Dr. Reina Carter Lymphocytes/100 WBC (Bld) 29.2 % Normal 20.5-60.0 [facility] Comment on above: Performed By: #### C BC #### [facility] [address] [place] [address] Dr. Reina Carter MANUAL DIFF REQ NO Normal [facility] Comment on above: Performed By: #### C BC #### [facility] [address] [place] [address] Dr. Reina Carter MCH (RBC) [Entitic mass] 28.7 pg Normal 26.7-34.0 [facility] Comment on above: Performed By: #### C BC #### [facility] [address] [place] [address] Dr. Reina Carter MCHC (RBC) [Mass/Vol] 32.1 g/dL Normal 29.9-35.2 [facility] Comment on above: Performed By: #### C BC #### [facility] [address] [place] [address] Dr. Reina Carter MCV (RBC) [Entitic vol] 89.5 fL Normal 81.0-99.0 [facility] Comment on above: Performed By: #### C BC #### [facility] [address] [place] [address] Dr. Reina Carter MONO # 0.3 103/ul Normal 0.3-0.8 [facility] Comment on above: Performed By: #### C BC #### [facility] [address] [place] [address] Dr. Reina Carter Monocytes/100 WBC (Bld) 6.7 % Normal 1.7-12.0 [facility] Comment on above: Performed By: #### C BC #### [facility] [address] [place] [address] Dr. Reina Carter NEUT # 3.0 103/ul Normal 1.4-6.5 [facility] Comment on above: Performed By: #### C BC #### [facility] [address] [place] [address] Dr. Reina Carter Neutrophils/100 WBC (Bld) 61.1 % Normal 43.0-75.0 [facility] Comment on above: Performed By: #### C BC #### [facility] [address] [place] [address] Dr. Reina Carter Platelet mean volume (Bld) [Entitic vol] 12.2 fL Normal 9.5-13.5 [facility] Comment on above: Performed By: #### C BC #### [facility] [address] [place] [address] Dr. Reina Carter PLT 208 103/ul Normal 150-450 [facility] Comment on above: Performed By: #### C BC #### [facility] [address] [place] [address] Dr. Reina Carter RBC 4.77 106/ul Normal 4.20-5.40 [facility] Comment on above: Performed By: #### C BC #### [facility] [address] [place], [place] [address] Dr. Reina Carter WBC 5.0 103/ul Normal 4.0-11.0 [facility] Comment on above: Performed By: #### C BC #### [facility] [address] [place], [place] [address] Dr. Reina Carter Complete Blood Count and Dif brannon 11-09-2022 Anisocytosis Ql (Bld) [facility] Other Basophilic stippling LM Ql (Bld) [facility] Other RBC morphology finding Nom (d) [facility] Other Complete Blood Count and Diff [facility] Other Comprehensive Metabolic Pane rex 11-09-2022 Albumin [Mass/Vol] 4.568205 g/dL 3.4-5.0 g/dL [facility] Other Calcium [Mass/Vol] 9.1708896 mg/dL 8.5-10 .1 mg/dL [facility] Other CO2 [Moles/Vol] 30.70885640 mmol/L 21.0-3 2.0 mmol/L [facility] Other Creatinine [Mass/Vol] 0.03087274 mg/dL 0.55-1.02 mg/dL [facility] Other Potassium [Moles/Vol] 3.78340027 mmol/L 3.5-5.1 mmol/L [facility] Other Protein [Mass/Vol] 7.237024 g/dL 6.4-8.2 g/dL [facility] Other Urea nitrogen [Mass/Vol] 7.1530207 mg/dL 7.0-18.0 mg/dL [facility] Other Comprehensive Metabolic Panel see note [facility] Other Comprehensive Metabolic Panel 141 mmol/L 136-145 mmol/L [facility] Other Comprehensive Metabolic Panel 91 mg/dL 74-106 mg/dL [facility] Other Comprehensive Metabolic Panel >60 mL/min/1.73m2 >=60 mL/min/1.73m2 [facility] Other Comprehensive Metabolic Panel 1.1 mg/dL Critically high 0.2-1.0 mg/dL [facility] Other Comprehensive Metabolic Panel 3.5 g/dL [facility] Other LIPID PROFILEon 11-09-2022 CHOL-HDL RATIO NORM SEE BELOW Normal [facility] Comment on above: Result Comment: 3.3 - 4.4 LOW RISK 4.4 - 7.1 AVERAGE RISK 7.1 - 11.0 MODERATE RISK >11.0 HIGH RISK Performed By: #### L IPID, CMP #### [facility] [address] [place] [address] Dr. Reina Carter Cholesterol [Mass/Vol] 103 mg/dL <=200 mg/dL [facility] Comment on above: Performed By: #### L IPID, CMP #### [facility] [address] [place] [address] Dr. Reina Carter Cholesterol in HDL [Mass/Vol] 46 mg/dL 40-60 mg/dL [facility] Comment on above: Performed By: #### L IPID, CMP #### [facility] [address] [place] [address] [address] Reina Carter Cholesterol in LDL [Mass/Vol] 39.4 mg/dL Normal [facility] Comment on above: Performed By: #### L IPID, CMP #### [facility] [address] [place] [address] [address] Reina Carter Cholesterol.total/Ch olesterol in HDL [Mass ratio] 2.2 {ratio} [facility] Comment on above: Performed By: #### L IPID, CMP #### [facility] [address] [address] [address] Reina Carter HDL NORMAL > or = 60 mg/dl - LOW CARDIOVASCULAR RISK <40 mg/dl - HIGH CARDIOVASCULAR RISK Normal [facility] Comment on above: Performed By: #### L IPID, CMP #### [facility] [address] [address] [address] Reina Carter LDL CALC NORMAL SEE BELOW Normal [facility] Comment on above: Result Comment: <100 mg/dl OPTIMAL 100 - 129 mg/dl NEAR OR ABOVE OPTIMAL 130 - 159 mg/dl BORDERLINE HIGH 160 - 189 mg/dl HIGH >190 mg/dl VERY HIGH Performed By: #### L IPID, CMP #### [facility] [address] [address] [address] Reina Carter Triglyceride [Mass/Vol] 88 mg/dL <=150 mg/dL [facility] Comment on above: Performed By: #### L IPID, CMP #### [facility] [address] [address] [address] Reina Carter VLDL CALC 17.6 mg/dL Normal [facility] Comment on above: Performed By: #### L IPID, CMP #### [facility] [address] [address] [address] Reina Carter Lipid Panelon 11-09-2022 Lipid Panel > or = 60 mg/dl - LOW CARDIOVASCULAR RISK <40 mg/dl - HIGH CARDIOVASCULAR RISK [facility] Other Lipid Panel SEE BELOW [facility] Other Lipid Panel 39.4 mg/dL [facility] Other Lipid Panel 17.6 mg/dL [facility] Other PROF 14(COMP METB)on 023 Albumin [Mass/Vol] 4.0 g/dL Normal 3.4-5.0 [facility] Comment on above: Performed By: #### L IPID, CMP #### [facility] [address] [address] [address] Reina Carter Albumin/Globulin [Mass ratio] 1.1 {ratio} [facility] Comment on above: Performed By: #### L IPID, CMP #### [facility] [address] [place] [address] [address] Reina Carter ALP [Catalytic activity/Vol] 91 U/L 46-116 U/L [facility] Comment on above: Performed By: #### L IPID, CMP #### [facility] [address] [address] [address] Reina Carter ALT [Catalytic activity/Vol] 33 U/L 14-59 U/L [facility] Comment on above: Performed By: #### L IPID, CMP #### [facility] [address] [address] [address] Reina Carter Anion gap [Moles/Vol] 11.5 mmol/L [facility] Comment on above: Performed By: #### L IPID, CMP #### [facility] [address] [place] [address] Dr. Reina Carter AST [Catalytic activity/Vol] 15 U/L 15-37 U/L [facility] Comment on above: Performed By: #### L IPID, CMP #### [facility] [address] [address] [address] Reina Carter Bilirubin [Mass/Vol] 1.1 mg/dL Critically high 0.2-1.0 [facility] Comment on above: Performed By: #### L IPID, CMP #### [facility] [address] [place] [address] Dr. Reina Carter Calcium [Mass/Vol] 9.1 mg/dL Normal 8.5-10.1 [facility] Comment on above: Performed By: #### L IPID, CMP #### [facility] [address] [place] [address] Dr. Reina Carter Chloride [Moles/Vol] 103 mmol/L 98-107 mmol/L [facility] Comment on above: Performed By: #### L IPID, CMP #### [facility] [address] [place] [address] Dr. Reina Carter CO2 [Moles/Vol] 30.4 mmol/L Normal 21.0-32.0 [facility] Comment on above: Performed By: #### L IPID, CMP #### [facility] [address] [address] [address] Reina Carter Creatinine [Mass/Vol] 0.84 mg/dL Normal 0.55-1.02 [facility] Comment on above: Performed By: #### L IPID, CMP #### [facility] [address] [address] [address] Reina Carter EGFR-AF ECUADOREAN >60 Normal >=60 [facility] Comment on above: Performed By: #### L IPID, CMP #### [facility] [address] [address] [address] Reina Carter EGFR-NON AF ECUADOREAN >60 Normal >=60 [facility] Comment on above: Performed By: #### L IPID, CMP #### [facility] [address] [address] [address] Reina Carter Globulin (S) [Mass/Vol] 3.5 g/dL Normal [facility] Comment on above: Performed By: #### L IPID, CMP #### [facility] [address] [address] [address] Reina Carter Glucose [Mass/Vol] 91 mg/dL Normal 74-106 [facility] Comment on above: Performed By: #### L IPID, CMP #### [facility] [address] [address] [address] Reina Carter Potassium [Moles/Vol] 3.9 mmol/L Normal 3.5-5.1 [facility] Comment on above: Performed By: #### L IPID, CMP #### [facility] [address] [address] [address] Reina Carter Protein [Mass/Vol] 7.5 g/dL Normal 6.4-8.2 [facility] Comment on above: Performed By: #### L IPID, CMP #### [facility] [address] [address] [address] Reina Carter Sodium [Moles/Vol] 141 mmol/L Normal 136-145 [facility] Comment on above: Performed By: #### L IPID, CMP #### [facility] [address] [place], [place] [address] Dr. Reina Carter Urea nitrogen [Mass/Vol] 7.0 mg/dL Normal 7.0-18.0 [facility] Comment on above: Performed By: #### L IPID, CMP #### [facility] [address] [place], [place] [address] Dr. Reina Carter Urea nitrogen/Creatinine [Mass ratio] 8.3 mg/mg [facility] Comment on above: Performed By: #### L IPID, CMP #### [facility] [address] [place], [place] [address] Dr. Reina Carter MG MAMM SCREEN 3D HERBERTH CADon 10-19-2022 MG MAMM SCREEN 3D HERBERTH CAD Patient: ESTELLA SHAH Exam Date: 10/19/2022 : 1965 Gender:F Ordering : DR HIEN MARIA [facility] Admission #: [id number] Family : DR RAE MAC M.D. Order #: [id number] CLICK HERE TO VIEW EXAM RADIOLOGY REPORT [...] Treatments None Family Cancers None LOCATION: [facility] BREAST COMPOSITION: Scattered areas fibroglandular density. FINDINGS: [...] Flowers MD on 10/20/2022 at 07:12 Normal [facility] CHOLESTEROL TOTALon 04-30-20 22 Cholesterol [Mass/Vol] 119 mg/dL Normal <=200 [facility] Comment on above: Performed By: #### A LT, CHOL #### [facility] [address] [place] [address] Dr. Reina Carter [facility] 01-30-2022 ALT [Catalytic activity/Vol] 34 U/L Normal 14-59 [facility] Comment on above: Performed By: #### A LT, CHOL #### [facility] [address] [address] [address] Reina Carter Vital Signs Date Time Vital Sign Value Performing Clinician Facility 11-15-2023 15:15-0500 Blood Pressure Location [facility] 11-15-2023 15:15-0500 Diastolic blood pressure 78 mm[Hg] [facility] 11-15-2023 15:15-0500 Heart rate 72 /min [facility] 11-15-2023 15:15-0500 Respiratory rate 16 /min [facility] 11-15-2023 15:15-0500 Systolic blood pressure 116 mm[Hg] WISHIL [facility] 11-03-2023 15:24-0500 Body height 172.72 cm Hernesto Ball Other [facility] Other 10-18-2023 15:30-0500 Body height 172.72 cm Hernesto Ball Other [facility] Other 10-18-2023 15:30-0500 Body mass index (BMI) [Ratio] 22.96 kg/m2 Hernesto Ball Other [facility] Other 10-18-2023 15:30-0500 Body weight 68.49 kg Hernesto Ball Other [facility] Other 10-18-2023 15:30-0500 Diastolic blood pressure 73 mm[Hg] Hernesto Ball Other [facility] Other 10-18-2023 15:30-0500 Systolic blood pressure 120 mm[Hg] Hernesto Ball Other [facility] Other 10-13-2022 16:30-0500 Body height 172.72 cm Hernesto Ball Other [facility] Other 10-13-2022 16:30-0500 Body mass index (BMI) [Ratio] 22.44 kg/m2 Hernesto Ball Other [facility] Other 10-13-2022 16:30-0500 Body weight 66.95 kg Hernesto Ball Other [facility] Other 10-13-2022 16:30-0500 Diastolic blood pressure 86 mm[Hg] Hernesto Ball Other [facility] Other 10-13-2022 16:30-0500 Respiratory rate 12 /min Hernesto Ball Other [facility] Other 10-13-2022 16:30-0500 Systolic blood pressure 126 mm[Hg] Hernesto Ball Other [facility] Other Encounters Encounter Date Encounter Type Care Provider Facility Start: 11-15-2023 End: 11-16-2023 ambulatory Doug DIA Facility:[facility] Start: 11-15-2023 End: 11-15-2023 Patient encounter procedure Doug DIA [facility] Start: 11-07-2023 ambulatory Doug DIA Facility:[facility] Start: 11-03-2023 End: 11-03-2023 ambulatory Hernesto Ball Other [facility] Other Start: 11-03-2023 Telephone encounter Hernesto Ball [facility] Start: 11-01-2023 End: 11-01-2023 ambulatory Hernesto Ball Other [facility] Other Start: 11-01-2023 Telephone encounter Hernesto Ball [facility] Start: 10-18-2023 End: 10-18-2023 ambulatory Hernesto Ball Other [facility] Other Start: 10-18-2023 Encounter for genera l adult medical examination without abnormal findings Hernesto Wesley [facility] Start: 10-18-2023 Periodic preventive med est patient 40-64yrs Hernesto Wesley [facility] Start: 09-08-2023 End: 09-08-2023 ambulatory Hernesto Wesley Other [facility] Other Start: 09-08-2023 Telephone encounter Hernesto Ball [facility] Start: 04-28-2023 End: 04-28-2023 ambulatory Hernesto Lupillo Other [facility] Other Start: 04-28-2023 Telephone encounter Hernesto Ball [facility] Start: 04-12-2023 End: 04-12-2023 ambulatory Hernesto Wesley Other [facility] Other Start: 04-12-2023 Telephone encounter Hernesto Ball [facility] Start: 12-08-2022 End: 12-08-2022 ambulatory Hernesto Ball Other [facility] Other Start: 12-08-2022 Telephone encounter Hernesto Ball [facility] Start: 11-17-2022 End: 11-17-2022 ambulatory Hernesto Ball Other [facility] Other Start: 11-17-2022 Telephone encounter Hernesto Ball [facility] Start: 11-16-2022 Telephone encounter Hernesto Ball [facility] Start: 11-16-2022 End: 11-17-[address] HERNESTO WESLEY Facility:[facility] Start: 11-10-2022 Encounter for genera l adult medical examination without abnormal findings DR HERNESTO WESLEY [facility] Start: 11-09-2022 End: 11-10-[address] HERNESTO WESLEY Facility:[facility] Start: 11-09-2022 End: 11-10-2022 Encounter for general adult medical examination without abnormal findings DR HERNESTO WESLEY Facility:[facility] Start: 11-08-2022 End: 11-08-2022 ambulatory Hernesto Wesley Other [facility] Other Start: 11-08-2022 Encounter for genera l adult medical examination without abnormal findings Hernesto Wesley [facility] Start: 11-08-2022 Telephone encounter Hernesto SCOTT [facility] Start: 10-19-2022 End: 10-20-[address] HERNESTO WESLEY Facility:[facility] Start: 10-14-2022 End: 10-14-2022 ambulatory Hernesto Wesley Other [facility] Other Start: 10-14-2022 Telephone encounter Hernesto SCOTT [facility] Start: 10-13-2022 End: 10-13-2022 ambulatory Hernesto Wesley Other [facility] Other Start: 10-13-2022 Patient encounter procedure Hernesto Wesley [facility] Start: 10-13-2022 Periodic preventive med est patient 40-64yrs Hernesto Wesley [facility] Start: 01-30-2022 End: 01-31-[address] HERNESTO WESLEY Facility:[facility] Start: 08-24-2021 Adult health examination Hernesto Wesley Other [facility] Other Procedures Date Procedure Procedure Detail Performing Clinician Start: 09-09-2017 General examination of patient Hernesto Lupillo Other section Doug Rubin Cholecystectomy Doug DIA Depression screening Anupama Wesley Other Total abdominal hyst erectomy with bilateral salpingo-oophorectomy Doug DIA Immunizations Immunization Date Immunization Notes Care Provider Tamiko richmond 08-04-2023 influenza virus vaccine, unspecified formulation Doug DIA [facility] [place] 08-22-2021 SARS-CoV-2 (COVID-19 ) mRNA-1273 vaccine Doug DIA [facility] 01-03-2021 SARS-CoV-2 (COVID-19 ) mRNA-1273 vaccine Doug DIA [facility] 12-06-2020 SARS-CoV-2 (COVID-19 ) mRNA-1273 vaccine Doug DIA [facility] [place] Payers Date Payer Category Payer Private Health Insurance 1965 Unknown [id number] 2.16.84 [id number] 1965 Unknown [id number] 2.16.84 [id number] 1965 Unknown [id number] 2.16.84 [id number] 1965 Unknown [id number] 2.16.84 [id number] 1965 Unknown [id number] 2.16.8 [id number] 1965 Unknown [id number] 2.16.8 [id number] 1958 Unknown [id number] Social History Date Type Detail Facility Sex [facility]igned At [facility] Start: 11-15-2023 Tobacco smoking status Never s moked tobacco (finding) [facility] Tobacco smoking status Never [facility] Functional Status Date Assessment Result Facility 11-15-2023 Functional Status N/A [facility] [place] Clinical Notes 10-13-2022 to 11-15-2023 Note Date [...] SARS-CoV-2 (COVID-19) mRNA-1273 vaccine 12/06/2020 [address]ed [facility] Comment on above: Result Comment: Elec tronically Signed By: JEREMIAH MCDANIEL, Doug Mo\Date and Time Signed: 11/15/23 15:40 EST 11-03-2023 Evaluation note Encounter Date Diagnosis Assessment Notes Nov, Positive colorectal cancer screening using Cologuard test (ICD-10 - R19.5) Nov, Screening for colon cancer (ICD-10 - Z12.11) [facility] Other 01-16-2024 Evaluation note* Encounter Date Diagnosis [...] change in bowel habits, melena or hematochezia [facility] Other 02-14-2023 Evaluation note* Encounter Date Diagnosis Assessment Notes Treatment Notes Treatment Clinical Notes Nov, Bicuspid aortic valve (ICD-10 - Q23.1) Echo: LVEF 55%, KATRIN 1.6cm, Velocity 125, pk/mean 13/7 - 11/2022 [facility] Other 02-06-2023 Evaluation note* Encounter Date Diagnosis Assessment Notes Treatment Notes Treatment Clinical Notes Nov, Wellness examination (ICD-10 - Z00.00) Nov, Bicuspid aortic valve (ICD-10 - Q23.1) [facility] Other 01-12-2023 Evaluation note* Encounter Date Diagnosis Assessment Notes Treatment Notes Treatment Clinical Notes Oct, Acute stress reaction (ICD-10 - F43.0) [facility] Other 01-11-2023 Evaluation note* Encounter Date Diagnosis [...] due to ADR Healthy diet and exercise [facility] Other Evaluation + Plan note No data available for this section General Surgery Take the Interview Evaluation noteNo InformationNort Wasabi 3D Other History general Narrative - Reported* Type [...] ith BSO Hospitalization History see surgical history Figure [facility] Other Hospital Discharge instructions No data available for this section General Surgery Take the Interview Progress note No data available for this section General Surgery Take the Interview Reason for referral (narrative)* Reason Referral for screeni ng colonoscopy Diagnosis 1 Positive colorectal cancer screening using Cologuard test (R19.5) Referral Organization [facility] Referring Provider First Name Hernesto Referring Provider Last Name Lupillo Referring Provider Specialty Internal Me dicine Referred Organization [facility] Referred Provider Doug Dia [place] [address] [place] Referred Provider Specialty Surgery Referral Priority Routine General Notes Asymptomatic, low ri sk patient with positive Cologuard test. She denies change in appetite, weight or bowel habits. She denies abdominal pain, melena or hematochezia. [facility] Other Summary Purpose Family History No Family History Records Found No data available for this section No Family History Records Found Advance Directives No Advanced Directives Records FoundNo Advanced Directives Records Found Additional Source Comments INFORMATION SOURCE (unrecogn ized section and content) DATE CREATED AUTHOR 11/21/2022 [facility] DATE CREATED AUTHOR AUTHOR'S ORGANIZ ATION 11/17/2023 [facility] REASON FOR VISIT (unrecogniz ed section and content) WELLNESSprescriptions??Lab/E choNo InformationEcho Resultsprescription refillRefillrefillNo InformationWellnessCologuard resultsNo Information Patient Care team informatio n (unrecognized section and content) Personnel Name: HERNESTO WESLEY DO Address: Address: [address], [place], [place] [address] FOR RECORDS PERTAINING TO PATIENTS WHO ARE [...] BE BASED ON THE PRIMARY CLINICAL RECORDS. [employer] provides no warranty or guarantee of the accuracy or completeness of information in this document.
[2023-11-30 07:59] VITALS: BMI 22.9
[2023-11-30] MEDS: LACTATED RINGER'S SOLUTION 1,000 ML 50 ML IV (08:05)
[2023-11-30 09:39] VITALS: BP 119/73; PULSE 77; RESP 20; O2SAT 99
[2023-11-30 10:05] VITALS: BP 114/62; PULSE 72; RESP 16; O2SAT 99
== END 2023-11-30 10:05 | disposition home or self-care (01) ==
PROVIDERS: PCP Internal Medicine; Visit Provider Surgery
PROC: (CPT 811; principal; 2023-11-30 08:45)
DX: R19.5 Other fecal abnormalities (principal); I10 Essential (primary) hypertension; E78.00 Pure hypercholesterolemia, unspecified; Z90.710 Acquired absence of both cervix and uterus; Z90.49 Acquired absence of other specified parts of digestive tract
CPT/HCPCS: 45378; J2704

== ENCOUNTER 2024-10-26 06:49 | Outpatient (OUT) | payer BC, SELFPAY ==
--- NOTE | 2024-10-26 06:51 | MM_ITS ---
Patient Name: ESTELLA SHAH MR#: [id number] : 1965 Exam Date: 10/26/2024 Ordering Doctor: DR RAE MAC M.D. RADIOLOGY REPORT PROCEDURE: MM TOMOSYNTHESIS SCREENING BI COMPARISON: MG MAMM SCREEN 3D [facility] CAD, 10/19/2022. MM TOMOSYNTHESIS SCREENING BI, 10/21/2023. INDICATIONS: Screening Calculator Name NCI Breast Cancer Risk Assessment Tool 5 Year Breast Cancer Risk 1.10% Lifetime Breast Cancer Risk 6.60% Personal Breast Cancer No Personal Ovarian Cancer No Treatments None Family Cancers None LOCATION: [facility] BREAST COMPOSITION: There are scattered areas of fibroglandular density. FINDINGS: DIAGNOSTIC CATEGORY 1--NEGATIVE. NO CHANGE FROM COMPARISON ASSESSMENT. Scattered benign-appearing calcifications are present. Scattered benign-appearing lymph nodes are present. RIGHT BREAST: No significant suspicious finding. LEFT BREAST: No significant suspicious finding. RECOMMENDATIONS: ROUTINE MAMMOGRAM AND CLINICAL EVALUATION IN 12 MONTHS. PLEASE NOTE: A NORMAL MAMMOGRAM DOES NOT EXCLUDE THE POSSIBILITY OF BREAST CANCER. A CLINICALLY SUSPICIOUS PALPABLE LUMP SHOULD BE BIOPSIED. Dictated by: Drew Flowers MD on 10/26/2024 at 07:54 Approved by: Drew Flowers MD on 10/26/2024 at 07:58
--- OUTSIDE RECORDS SUMMARY | 2024-10-26 06:51 | XMS_ITS | CCD ---
Author Organization [facility] CliniSyut Care Team Providers Care Mac Artist Name Role Phone LUPILLO, DR LAMBERT Admitting Unavailable BALL, DR LAMBERT Primary Care Unavailable BALL, DR LAMBERT Consulting Unavailable BALL, DR LAMBERT Attending Unavailable BALL, DR LAMBERT Primary Care Unavailable BALL, DR LAMBERT Consulting Unavailable BALL, DR LAMBERT Attending Unavailable BALL, DR LAMBERT Admitting Unavailable BALL, DR LAMBERT Admitting Unavailable BALL, DR LAMBERT Primary Care Unavailable BALL, DR LAMBERT Consulting Unavailable BALL, DR LAMBERT Attending Unavailable BALL, DR LAMBERT Primary Care Unavailable ESTEFANIA, DR MCBRIDE Attending Unavailable RENÉ, DR TABATHA Lowery Consulting Unavailable ESTEFANIA, DR MCBRIDE Admitting Unavailable CROW, DR STANFORD Consulting Unavailable Lupillo, Hernesto Unavailable HERNESTO WESLEY Primary Care Physician Doug DIA Attending Unavailable NILL, Doug Delarosa Attending Unavailable BALL, HERNESTO Referring Unavailable Allergies Allergy Classification Reported Allergen(s) Allergy Type Date of Onset Reaction(s) Facility (14 sources) Acetaminophen / HYDROcodone; Translations: [Acetaminophen / Hydrocodone] Drug Allergy Vomiting (disorder) [facility] [place] (15 sources) Lisinopril; Translations: [lisinopril] Drug Allergy 11-03-19 Cough (finding) [facility] [place] (5 sources) patient allergy list reviewed by nurse or physicia Propensity to adverse reactions 04-12-20 14 Comment:Done Stream Other (5 sources) Vicodin *ANALGESICS - OPIOID* Propensity to adverse reactions Unknown Stream Other (1 source) Acetaminophen Drug Allergy 11-03-19 [facility] (1 source) HYDROcodone Drug Allergy 11-03-19 [facility] Medications Current Medications Medication Drug Class(es) Dates [...] Active Start: 04-28-2023 take 1 capsule by [facility] every twenty-four hours Adderall XR 5 MG 1 capsule in the morning Orally Once a day for 30 days Apr, Active Start: 04-12-2023 take 1 capsule by [facility] every twenty-four hours Adderall XR 15 [...] 11/09/23 Status: Ordered take [facility] every twenty-four hours Estradiol 0.5 MG 1 [...] Disorders of lipid metabolism (20 sources) Pure hypercholesterolemia , unspecified; Translations: [Hypercholesterolemi a] Onset: 01-30-2022 Chronic Disorders usually diagnosed in [...] [Allergic rhinitis due to pollen] 11-09-2023 Chronic Residual codes; unclassified (1 source) History of colonoscopy; Translations: [Other specified postprocedural states] 12-01-2023 Episodic Sprains and strains (10 sources) Strain of [...] Test Name Value Interpretation Reference Range Facility Outside Colonoscopyon 2023 Outside Colonoscopy [id number] #1.00TIFF [facility] Reminderson 12-01-2023 Reminders - From: Porsche Camacho LPN To: N - Clinical; Sent: 12/01/2023 08:58:06 EST Show up: 10/30/2033 07:00:00 EST Subject: colonoscopy recall Due Date/Time: 11/30/2033 07:00:00 EST Reminder/Recall Patient due for screening colonoscopy 11/30/2033. [facility] Consent for Procedure/Surger yon 11-16-2023 Consent for Procedure/Surgery [id number] #1.00TIFF [facility] Facesheeton 11-16-2023 Facesheet [id number] 4#1.00TIFF [facility] Insurance Correspondenceon 0 11-16-2023 Insurance Correspondence [id number] 4#1.00TIFF Abbey Munoz [facility] Ambulatory Visit Summaryon 0 11-15-2023 Ambulatory Visit Summary SHALINI SHAH :1965 Visit Date:11/15/2023 Ambulatory Visit Instructions [...] for choosing us for your care. Normal [facility] Physician Referralon 024 Physician Referral [id number] #1.00TIFF Normal [facility] ECHOCARDIO M/2D COMPLETEon 0 11-16-2022 ECHOCARDIO M/2D COMPLETE Patient: SHALINI SHAH Exam Date: 11/16/2022 : 1965 Gender:F Ordering : DR HERNESTO WESLEY D.O. Admission #: [id number] Family : Order #: [id number] CLICK HERE TO VIEW EXAM ECHOCARDIOGRAM REPORT [...] M.D. on 11/16/2022 at 12:23 Normal [facility] CBC AUTO DIFFon 11-09-2022 BASO # 0.0 103/ul Normal 0.0-0.1 [facility] Comment on above: Performed By: #### C BC #### [facility] [address] [place] [address] Dr. Reina Carter Basophils/100 WBC (Bld) 0.8 % Normal 0.2-2.0 [facility] Comment on above: Performed By: #### C BC #### [facility] [address] [place] [address] Dr. Reina Carter EO # 0.1 103/ul Normal 0.0-0.7 [facility] Comment on above: Performed By: #### C BC #### [facility] [address] [place] [address] Dr. Reina Carter Eosinophils/100 WBC (Bld) 2.0 % Normal 0.9-7.0 [facility] Comment on above: Performed By: #### C BC #### [facility] [address] [place] [address] Dr. Reina Carter Erythrocyte distribution width (RBC) [Ratio] 13.2 % Normal 11.0-15.0 [facility] Comment on above: Performed By: #### C BC #### [facility] [address] [place] [address] Dr. Reina Carter Hematocrit (Bld) [Volume fraction] 42.7 % Normal 36.0-48.0 [facility] Comment on above: Performed By: #### C BC #### [facility] [address] [place] [address] Dr. Reina Carter Hemoglobin (Bld) [Mass/Vol] 13.7 g/dL Normal 12.0-16.0 [facility] Comment on above: Performed By: #### C BC #### [facility] [address] [place] [address] Dr. Reina Carter IG # 0.01 10e3/ul Normal 0.00-0.03 [facility] Comment on above: Performed By: #### C BC #### [facility] [address] [place] [address] Dr. Reina Carter IG % 0.2 % Normal 0.0-0.5 [facility] Comment on above: Performed By: #### C BC #### [facility] [address] [place] [address] Dr. Reina Carter LYMPH # 1.5 103/ul Normal 1.2-3.8 [facility] Comment on above: Performed By: #### C BC #### [facility] [address] [address] [address] Reina Carter Lymphocytes/100 WBC (Bld) 29.2 % Normal 20.5-60.0 [facility] Comment on above: Performed By: #### C BC #### [facility] [address] [address] [address] Reina Carter MANUAL DIFF REQ NO Normal [facility] Comment on above: Performed By: #### C BC #### [facility] [address] [place] [address] Dr. Reina Carter MCH (RBC) [Entitic mass] 28.7 pg Normal 26.7-34.0 [facility] Comment on above: Performed By: #### C BC #### [facility] [address] [place] [address] Dr. Reina Carter MCHC (RBC) [Mass/Vol] 32.1 g/dL Normal 29.9-35.2 [facility] Comment on above: Performed By: #### C BC #### [facility] [address] [place] [address] Dr. Reina Carter MCV (RBC) [Entitic vol] 89.5 fL Normal 81.0-99.0 [facility] Comment on above: Performed By: #### C BC #### [facility] [address] [place] [address] Dr. Reina Carter MONO # 0.3 103/ul Normal 0.3-0.8 [facility] Comment on above: Performed By: #### C BC #### [facility] [address] [place] [address] Dr. Reina Carter Monocytes/100 WBC (Bld) 6.7 % Normal 1.7-12.0 [facility] Comment on above: Performed By: #### C BC #### [facility] [address] [place] [address] Dr. Reina Carter NEUT # 3.0 103/ul Normal 1.4-6.5 [facility] Comment on above: Performed By: #### C BC #### [facility] [address] [address] [address] Reina Carter Neutrophils/100 WBC (Bld) 61.1 % Normal 43.0-75.0 [facility] Comment on above: Performed By: #### C BC #### [facility] [address] [place] [address] Dr. Reina Carter Platelet mean volume (Bld) [Entitic vol] 12.2 fL Normal 9.5-13.5 [facility] Comment on above: Performed By: #### C BC #### [facility] [address] [address] [address] Reina Carter PLT 208 103/ul Normal 150-450 [facility] Comment on above: Performed By: #### C BC #### [facility] [address] [place] [address] Dr. Reina Carter RBC 4.77 106/ul Normal 4.20-5.40 [facility] Comment on above: Performed By: #### C BC #### [facility] [address] [address] [address] Reina Carter WBC 5.0 103/ul Normal 4.0-11.0 [facility] Comment on above: Performed By: #### C BC #### [facility] [address] [address] [address] Reina Carter Complete Blood Count and Dif brannon 11-09-2022 Anisocytosis Ql (Bld) Stream Other Basophilic stippling LM Ql (Bld) Earlier Media [facility] [employer] Other RBC morphology finding Nom (Bld) Earlier [employer] [facility] [employer] Other Complete Blood Count and Diff Stream Other Comprehensive Metabolic Pane rex 11-09-2022 Albumin [Mass/Vol] 4.991276 g/dL 3.4-5.0 g/dL N [facility] [place] Other Calcium [Mass/Vol] 9.2953235 mg/dL 8.5-10 .1 mg/dL Stream Other CO2 [Moles/Vol] 30.62721445 mmol/L 21.0-3 2.0 mmol/L [facility] Other Creatinine [Mass/Vol] 0.36724751 mg/dL 0.55-1.02 mg/dL [facility] Other Potassium [Moles/Vol] 3.78259817 mmol/L 3.5-5.1 mmol/L [facility] Other Protein [Mass/Vol] 7.332624 g/dL 6.4-8.2 g/dL [facility] [place] Other Urea nitrogen [Mass/Vol] 7.9992854 mg/dL 7.0-18.0 mg/dL [facility] Other Comprehensive Metabolic Panel see note Stream Other Comprehensive Metabolic Panel 141 mmol/L 136-145 mmol/L [facility] Other Comprehensive Metabolic Panel 91 mg/dL 74-106 mg/dL [facility] Other Comprehensive Metabolic Panel >60 mL/min/1.73m2 >=60 mL/min/1.73m2 [facility] Other Comprehensive Metabolic Panel 1.1 mg/dL Critically high 0.2-1.0 mg/dL [facility] Other Comprehensive Metabolic Panel 3.5 g/dL Stream Other LIPID PROFILEon 11-09-2022 CHOL-HDL RATIO NORM SEE BELOW Normal [facility] Comment on above: Result Comment: 3.3 - 4.4 LOW RISK 4.4 - 7.1 AVERAGE RISK 7.1 - 11.0 MODERATE RISK >11.0 HIGH RISK Performed By: #### L GURMEET, CMP #### [facility] [address] [address] [address] Reina Carter Cholesterol [Mass/Vol] 103 mg/dL <=200 mg/dL [facility] Comment on above: Performed By: #### L IPAMOL, CMP #### [facility] [address] [address] [address] Reina Carter Cholesterol in HDL [Mass/Vol] 46 mg/dL 40-60 mg/dL [facility] Comment on above: Performed By: #### L IPID, CMP #### [facility] [address] [address] [address] Reina Carter Cholesterol in LDL [Mass/Vol] 39.4 mg/dL Normal [facility] Comment on above: Performed By: #### L IPID, CMP #### [facility] [address] [address] [address] Reina Carter Cholesterol.total/Ch olesterol in HDL [Mass ratio] 2.2 {ratio} [facility] Comment on above: Performed By: #### L IPID, CMP #### [facility] [address] [address] [address] Reina Carter HDL NORMAL > or = 60 mg/dl - LOW CARDIOVASCULAR RISK <40 mg/dl - HIGH CARDIOVASCULAR RISK Normal [facility] Comment on above: Performed By: #### L IPID, CMP #### [facility] [address] [address] [address] Reina Carter LDL CALC NORMAL SEE BELOW Normal [facility] Comment on above: Result Comment: <100 mg/dl OPTIMAL 100 - 129 mg/dl NEAR OR ABOVE OPTIMAL 130 - 159 mg/dl BORDERLINE HIGH 160 - 189 mg/dl HIGH >190 mg/dl VERY HIGH Performed By: #### L IPID, CMP #### [facility] [address] [address] [address] Reina Carter Triglyceride [Mass/Vol] 88 mg/dL <=150 mg/dL [facility] Comment on above: Performed By: #### L IPID, CMP #### [facility] [address] [place] [address] Dr. Reina Carter VLDL CALC 17.6 mg/dL Normal [facility] Comment on above: Performed By: #### L IPID, CMP #### [facility] [address] [address] [address] Reina Carter Lipid Panelon 11-09-2022 Lipid Panel > or = 60 mg/dl - LOW CARDIOVASCULAR RISK <40 mg/dl - HIGH CARDIOVASCULAR RISK Stream Other Lipid Panel SEE BELOW Stream Other Lipid Panel 39.4 mg/dL Stream Other Lipid Panel 17.6 mg/dL Stream Other PROF 14(COMP METB)on 023 Albumin [Mass/Vol] 4.0 g/dL Normal 3.4-5.0 [facility] Comment on above: Performed By: #### L IPID, CMP #### [facility] [address] [place] [address] Dr. Reina Carter Albumin/Globulin [Mass ratio] 1.1 {ratio} [facility] Comment on above: Performed By: #### L IPID, CMP #### [facility] [address] [place] [address] Dr. Reina Carter ALP [Catalytic activity/Vol] 91 U/L 46-116 U/L [facility] Comment on above: Performed By: #### L IPID, CMP #### [facility] [address] [place] [address] Dr. Reina Carter ALT [Catalytic activity/Vol] 33 U/L 14-59 U/L [facility] Comment on above: Performed By: #### L IPID, CMP #### [facility] [address] [place] [address] Dr. Reina Carter Anion gap [Moles/Vol] 11.5 mmol/L [facility] Comment on above: Performed By: #### L IPID, CMP #### [facility] [address] [place] [address] Dr. Reina Carter AST [Catalytic activity/Vol] 15 U/L 15-37 U/L [facility] Comment on above: Performed By: #### L IPID, CMP #### [facility] [address] [place] [address] Dr. Reina Carter Bilirubin [Mass/Vol] 1.1 mg/dL Critically high 0.2-1.0 [facility] Comment on above: Performed By: #### L IPID, CMP #### [facility] [address] [place] [address] Dr. Reina Carter Calcium [Mass/Vol] 9.1 mg/dL Normal 8.5-10.1 [facility] Comment on above: Performed By: #### L IPID, CMP #### [facility] [address] [place] [address] Dr. Reina Carter Chloride [Moles/Vol] 103 mmol/L 98-107 mmol/L [facility] Comment on above: Performed By: #### L IPID, CMP #### [facility] [address] [place] [address] Dr. Reina Carter CO2 [Moles/Vol] 30.4 mmol/L Normal 21.0-32.0 [facility] Comment on above: Performed By: #### L IPID, CMP #### [facility] [address] [place] [address] Dr. Reina Carter Creatinine [Mass/Vol] 0.84 mg/dL Normal 0.55-1.02 [facility] Comment on above: Performed By: #### L IPID, CMP #### [facility] [address] [place] [address] Dr. Reina Carter EGFR-AF TRINIDADIAN >60 Normal >=60 [facility] Comment on above: Performed By: #### L IPID, CMP #### [facility] [address] [place] [address] Dr. Reina Carter EGFR-NON AF TRINIDADIAN >60 Normal >=60 [facility] Comment on above: Performed By: #### L IPID, CMP #### [facility] [address] [place] [address] Dr. Reina Carter Globulin (S) [Mass/Vol] 3.5 g/dL Normal [facility] Comment on above: Performed By: #### L IPID, CMP #### [facility] [address] [place] [address] Dr. Reina Carter Glucose [Mass/Vol] 91 mg/dL Normal 74-[address] [facility] Comment on above: Performed By: #### L IPID, CMP #### [facility] [address] [place] [address] Dr. Reina Carter Potassium [Moles/Vol] 3.9 mmol/L Normal 3.5-5.1 [facility] Comment on above: Performed By: #### L IPID, CMP #### [facility] [address] [place] [address] Dr. Reina Carter Protein [Mass/Vol] 7.5 g/dL Normal 6.4-8.[address] [facility] Comment on above: Performed By: #### L IPID, CMP #### [facility] [address] [place] [address] Dr. Reina Carter Sodium [Moles/Vol] 141 mmol/L Normal 136-145 [facility] Comment on above: Performed By: #### L IPID, CMP #### [facility] [address] [place] [address] Dr. Reina Carter Urea nitrogen [Mass/Vol] 7.0 mg/dL Normal 7.0-18.0 [facility] Comment on above: Performed By: #### L IPID, CMP #### [facility] [address] [place] [address] Dr. Reina Carter Urea nitrogen/Creatinine [Mass ratio] 8.3 mg/mg [facility] Comment on above: Performed By: #### L IPID, CMP #### [facility] [address] [place] [address] Dr. Reina Carter MG MAMM SCREEN 3D HERBERTH CADon 10-19-2022 MG MAMM SCREEN 3D HERBERTH CAD Patient: SHALINI SHAH Exam Date: 10/19/2022 : 1965 Gender:F Ordering : DR HIEN [facility] Admission #: [id number] Family : DR RAE MAC M.D. Order #: [id number] CLICK HERE TO VIEW EXAM RADIOLOGY REPORT PROCEDURE: MAMMOGRAM SCREENING 3D BILATERAL CAD COMPARISON: MG MAMM LT DIAG FU, 10/13/2020. MG MAMM SCREEN 3D HERBERTH CAD, 10/12/2021. INDICATIONS: Screening mammography Calculator Name NCI Breast Cancer Risk Assessment Tool 5 Year Breast Cancer Risk 1.00% Lifetime Breast Cancer Risk 6.90% Personal Breast Cancer No Personal Ovarian Cancer No Treatments None Family Cancers None LOCATION: [facility] BREAST COMPOSITION: Scattered areas fibroglandular density. FINDINGS: [...] Flowers MD on 10/20/2022 at 07:12 Normal [facility] CHOLESTEROL TOTALon 01-31-20 22 Cholesterol [Mass/Vol] 119 mg/dL Normal <=200 [facility] Comment on above: Performed By: #### A LT, CHOL #### [facility] [address] [place] [address] Dr. Reina Carter [facility] 01-30-2022 ALT [Catalytic activity/Vol] 34 U/L Normal 14-59 [facility] Comment on above: Performed By: #### A LT, CHOL #### [facility] [address] [place] [address] Dr. Reina Carter Vital Signs Date Time Vital Sign Value Performing Clinician Facility 11-15-2023 15:15-0500 Blood Pressure Location Doug JEREMIAH [facility] 11-15-2023 15:15-0500 Diastolic blood pressure 78 mm[Hg] Doug TODDL [facility] 11-15-2023 15:15-0500 Heart rate 72 /min Doug TODDL [facility] 11-15-2023 15:15-0500 Respiratory rate 16 /min Doug TODDL [facility] 11-15-2023 15:15-0500 Systolic blood pressure 116 mm[Hg] Doug DIA [facility] [place] 11-03-2023 15:24-0500 Body height 172.72 cm Hernesto Ball Other [facility] Other 10-18-2023 15:30-0500 Body height 172.72 cm Hernesto Ball Other [facility] Other 10-18-2023 15:30-0500 Body mass index (BMI) [Ratio] 22.96 kg/m2 Hernesto Ball Other [facility] Other 10-18-2023 15:30-0500 Body weight 68.49 kg Hernesto Ball Other Stream Other 10-18-2023 15:30-0500 Diastolic blood pressure 73 mm[Hg] Hernesto Ball Other [facility] Other 10-18-2023 15:30-0500 Systolic blood pressure 120 mm[Hg] Hernesto Ball Other Stream Other 10-13-2022 16:30-0500 Body height 172.72 cm Hernesto Ball Other [facility] Other 10-13-2022 16:30-0500 Body mass index (BMI) [Ratio] 22.44 kg/m2 Hernesto Ball Other [facility] Other 10-13-2022 16:30-0500 Body weight 66.95 kg Hernesto Ball Other [facility] Other 10-13-2022 16:30-0500 Diastolic blood pressure 86 mm[Hg] Hernesto Ball Other [facility] Other 10-13-2022 16:30-0500 Respiratory rate 12 /min Hernesto Wesley Other Stream Other 10-13-2022 16:30-0500 Systolic blood pressure 126 mm[Hg] Hernesto Wesley Other Stream Other Encounters Encounter Date Encounter Type Care Provider Facility Start: 05-04-2024 End: 05-04-2024 ambulatory [facility] Work Phone: Start: 05-04-2024 End: 05-04-2024 Patient encounter procedure [facility] Work Phone: Start: 11-30-2023 End: 12-01-2023 ambulatory Doug R NILL Facility: [place] Start: 11-15-2023 End: 11-16-2023 ambulatory [facility] Start: 11-15-2023 End: 11-15-2023 Patient encounter procedure Doug R NILL [facility] Start: 11-07-2023 ambulatory Doug NILL Facility:[facility] Start: 11-03-2023 End: 11-03-2023 ambulatory Hernesto Wesley Other Stream Other Start: 11-03-2023 Telephone encounter Hernesto Lupillo [facility] Start: 11-01-2023 End: 11-01-2023 ambulatory Hernesto Wesley Other Stream Other Start: 11-01-2023 Telephone encounter Hern[facility]upillo [facility] Start: 10-18-2023 End: 10-18-2023 ambulatory Hernesto Wesley Other Stream Other Start: 10-18-2023 Encounter for genera l adult medical examination without abnormal findings Hernesto Wesley [facility] Start: 10-18-2023 Periodic preventive med est patient 40-64yrs Hernesto Wesley [facility] Start: 09-08-2023 End: 09-08-2023 ambulatory Hernesto Wesley Other Stream Other Start: 09-08-2023 Telephone encounter Hernesto Lupillo [facility] Start: 04-28-2023 End: 04-28-2023 ambulatory Hernesto Lupillo Other Stream Other Start: 04-28-2023 Telephone encounter Hernesto Lupillo [facility] Start: 04-12-2023 End: 04-12-2023 ambulatory Hernesto Wesley Other Stream Other Start: 04-12-2023 Telephone encounter Hernesto Lupillo [facility] Start: 12-08-2022 End: 12-08-2022 ambulatory Hernesto Wesley Other Stream Other Start: 12-08-2022 Telephone encounter Hernesto Wesley [facility] Start: 11-17-2022 End: 11-17-2022 ambulatory Hernesto Wesley Other Stream Other Start: 11-17-2022 Telephone encounter Hernesto Wesley [facility] Start: 11-16-2022 Telephone encounter Hernesto Wesley [facility] Start: 11-16-2022 End: 11-17-[address] HERNESTO WESLEY Facility:[facility] Start: 11-10-2022 Encounter for genera l adult medical examination without abnormal findings DR HERNESTO WESLEY [facility] Start: 11-09-2022 End: 11-10-[address] HERNESTO WESLEY Facility:[facility] Start: 11-09-2022 End: 11-10-2022 Encounter for general adult medical examination without abnormal findings DR HERNESTO WESLEY Facility:[facility] Start: 11-08-2022 End: 11-08-2022 ambulatory Hernesto Wesley Other Stream Other Start: 11-08-2022 Encounter for genera l adult medical examination without abnormal findings Hernesto Wesley [facility] Start: 11-08-2022 Telephone encounter Hernesto [facility] Start: 10-19-2022 End: 10-20-[address] HERNESTO WESLEY Facility:[facility] Start: 10-14-2022 End: 10-14-2022 ambulatory Hernesto Wesley Other Stream Other Start: 10-14-2022 Telephone encounter Hernesto Wesley [facility] Start: 10-13-2022 End: 10-13-2022 ambulatory Hernesto Wesley Other Stream Other Start: 10-13-2022 Patient encounter procedure Hernesto Wesley [facility] Start: 10-13-2022 Periodic preventive med est patient 40-64yrs Hernesto Wesley [facility] Start: 01-30-2022 End: 01-31-[address] HERNESTO WESLEY Facility:[facility] Start: 08-24-2021 Adult health examination Hernesto Wesley Other Stream Other Procedures Date Procedure Procedure Detail Performing Clinician Start: 09-09-2017 General examination of patient Hernesto Wesley Other section Doug NIL L Cholecystectomy Doug PEREZL Depression screening Anupama Wesley Other Total abdominal hyst erectomy with bilateral salpingo-oophorectomy Doug TODDL Immunizations Immunization Date Immunization Notes Care Provider Tamiko richmond 08-04-2023 influenza virus vaccine, unspecified formulation Doug NILL [facility] [place] 08-22-2021 SARS-CoV-2 (COVID-19 ) mRNA-127 vaccine Doug NILL [facility] [place] 01-03-2021 SARS-CoV-2 (COVID-19 ) mRNA-1273 vaccine Doug NILL [facility] [place] 12-06-2020 SARS-CoV-2 (COVID-19 ) mRNA-1273 vaccine Doug NILL [facility] [place] Payers Date Payer Category Payer Private Health Insurance 1965 Unknown [id number] 2.16.84 [id number] 1965 Unknown [id number] 2.16.84 [id number] 1966 Unknown [id number] 2.16.84 [id number] 1966 Unknown [id number] 2.16.84 [id number] 1966 Unknown [id number] 2.16.8 [id number] 1966 Unknown [id number] 2.16.8 [id number] 1966 Unknown [id number] 2.16.8 [id number] 1959 Unknown [id number] Social History Date Type Detail Facility Sex Assigned At [facility] Start: 11-15-2023 Tobacco smoking status Never s moked tobacco (finding) [facility] [place] Tobacco smoking status Never [facility] [place] Start: 1965 Sex Assigned At Female F [facility] Functional Status Date Assessment Result Facility 11-15-2023 Functional Status N/A [facility] Clinical Notes 10-13-2022 to 11-15-2023 Note Date [...] Recorded SARS-CoV-2 (COVID-19) mRNA-1273 vaccine 12/06/2020 Recorded [facility] Comment on above: Result Comment: Elec tronically Signed By: JEREMIAH MCDANIEL, Doug Mo\Date and Time Signed: 11/15/23 15:40 EST 11-03-2023 Evaluation note Encounter Date Diagnosis Assessment Notes Nov, Positive colorectal cancer screening using Cologuard test (ICD-10 - R19.5) Nov, Screening for colon cancer (ICD-10 - Z12.11) Stream Other 01-16-2024 Evaluation note* Encounter Date Diagnosis [...] change in bowel habits, melena or hematochezia Stream Other 02-14-2023 Evaluation note* Encounter Date Diagnosis Assessment Notes Treatment Notes Treatment Clinical Notes Nov, Bicuspid aortic valve (ICD-10 - Q23.1) Echo: LVEF 55%, KATRIN 1.6cm, Velocity 125, pk/mean 13/7 - 11/2022 Stream Other 02-06-2023 Evaluation note* Encounter Date Diagnosis Assessment Notes Treatment Notes Treatment Clinical Notes Nov, Wellness examination (ICD-10 - Z00.00) Nov, Bicuspid aortic valve (ICD-10 - Q23.1) Stream Other 01-12-2023 Evaluation note* Encounter Date Diagnosis Assessment Notes Treatment Notes Treatment Clinical Notes Oct, Acute stress reaction (ICD-10 - F43.0) Stream Other 01-11-2023 Evaluation note* Encounter Date Diagnosis [...] due to ADR Healthy diet and exercise Stream Other Evaluation + Plan note No data available for this section [facility] [place] Evaluation noteNo InformationNort Kingdee Other Evaluation noteNo assessment information available [facility] Work Phone: History general Narrative - Reported* Type Description [...] ith BSO Hospitalization History see surgical history Stream Other Hospital Discharge instructions No data available for this section [facility] [place] Progress note No data available for this section [facility] [place] Reason for referral (narrative)* Reason Referral for screeni ng colonoscopy Diagnosis 1 Positive colorectal cancer screening using Cologuard test (R19.5) Referral Organization [facility] gu[facility] Referring Provider First Name Hernesto Referring Provider Last Name Lupillo Referring Provider Specialty Internal Me adrian Referred Organization [facility] Referred Provider Doug Dia Referred Address [address] [place], [place],[address] Referred Provider Specialty Surgery Referral Priority Routine General Notes Asymptomatic, low ri sk patient with positive Cologuard test. She denies change in appetite, weight or bowel habits. She denies abdominal pain, melena or hematochezia. Stream Other Summary Purpose Family History Relationship Condition Age at Onset Recorded Date/T nancy father Heart disease Unknown Unknown Advance Directives Advance Directive Response Recorded Date/ Time Advance Directives No May 04 1:23pm Chief Complaint and Reason for Visit Chief Complaint lower abdominal pain //urine sample Additional Source Comments INFORMATION SOURCE (unrecogn ized section and content) DATE CREATED AUTHOR 11/21/2022 [facility] DATE CREATED AUTHOR AUTHOR'S ORGANIZ ATION [facility] REASON FOR VISIT (unrecogniz ed section and content) WELLNESSprescriptions??Lab/E choNo InformationEcho Resultsprescription refillRefillrefillNo InformationWellnessCologuard resultsNo Information Patient Care team informatio n (unrecognized section and content) Team Status: Active Member Role Status Dates Hernesto Wesley DO Primary Care Provider Active Team Status: Inactive Member Role Status Dates Hernesto Wesley DO Primary Care Provide r, Attending Provider Active Start: May 04, 2024 End: May 04, 2024 Goals (unrecognized section and content) Goals may be documented in a n alternate section FOR RECORDS PERTAINING TO PATIENTS WHO ARE [...] BE BASED ON THE PRIMARY CLINICAL RECORDS. [employer] provides no warranty or guarantee of the accuracy or completeness of information in this document.
== END 2024-10-26 06:50 | disposition home or self-care (01) ==
LOC: MAMMO 06:49
PROVIDERS: PCP Internal Medicine; Visit Provider Obstetrics & Gynecology
DX: Z12.31 Encounter for screening mammogram for malignant neoplasm of breast (principal)
CPT/HCPCS: 77063; 77067

== ENCOUNTER 2024-11-02 07:07 | Outpatient (OUT) | payer BC, SELFPAY ==
--- OUTSIDE RECORDS SUMMARY | 2024-11-02 07:11 | XMS_ITS | CCD ---
Author Organization [facility] Care Team Providers Care Care Team Coordinator Scheduler Name Role Phone LUPILLO, DR LAMBERT Admitting [...] Hydrocodone] Drug Allergy Vomiting (disorder) [facility] [place] (15 sources) Lisinopril; Translations: [lisinopril] Drug Allergy 11-03-19 Cough (finding) [facility] [place] (5 sources) patient allergy list reviewed by nurse or physicia Propensity to adverse reactions 04-12-20 14 Comment:Done [employer] Other (5 sources) Vicodin *ANALGESICS - OPIOID* Propensity to adverse reactions Unknown [employer] Other (1 source) Acetaminophen Drug Allergy 11-03-19 [facility] (1 source) HYDROcodone Drug Allergy 11-03-19 [facility] Medications Current Medications Medication Drug Class(es) Dates [...] Active Start: 04-28-2023 [facility] Adderall XR 5 MG 1 capsule in the morning Orally Once a day for 30 days Apr, Active Start: 04-12-2023 [facility]four hours Adderall XR 15 [...] 11/09/23 Status: [facility] Estradiol 0.5 MG 1 [...] Range Facility Outside Colonoscopyon 2023 Outside Colonoscopy [id number] #1.00TIFF [facility] Reminderson 12-01-2023 Reminders - From: Porsche Camacho LPN To: N - Clinical; Sent: 12/01/2023 08:58:06 EST Show up: 10/30/2033 07:00:00 EST Subject: colonoscopy recall Due Date/Time: 11/30/2033 07:00:00 EST Reminder/Recall Patient due for screening colonoscopy 11/30/2033. [facility] Consent for Procedure/Surger yon 11-16-2023 Consent for Procedure/Surgery [id number] #1.00TIFF [facility] Facesheeton 11-16-2023 Facesheet [id number] 4#1.00TIFF [facility] Insurance Correspondenceon 0 11-16-2023 Insurance Correspondence [id number] 4#1.00TIFF Abbey Munoz [facility] Ambulatory Visit Summaryon 0 11-15-2023 Ambulatory [...] for choosing us for your care. Normal [facility] Physician Referralon 024 Physician Referral [id number] #1.00TIFF Normal [facility] ECHOCARDIO M/2D COMPLETEon 0 11-16-2022 ECHOCARDIO M/2D COMPLETE Patient: SHALINI SHAH Exam Date: 11/16/2022 : 1965 Gender:F Ordering : DR HERNESTO WESLEY D.O. Admission #: [id number] Family : Order #: [id number] CLICK HERE TO VIEW EXAM ECHOCARDIOGRAM REPORT [...] M.D. on 11/16/2022 at 12:23 Normal [facility] CBC AUTO DIFFon 11-09-2022 BASO # 0.0 103/ul Normal 0.0-0.1 [facility] Comment on above: Performed By: #### C BC #### [facility] [address] [place] [address] Dr. Reina Carter Basophils/100 WBC (Bld) 0.8 % Normal 0.2-2.0 [facility] Comment on above: Performed By: #### C BC #### [facility] [address] [place] [address] Dr. Reina Carter EO # 0.1 103/ul Normal 0.0-0.7 [facility] Comment on above: Performed By: #### C BC #### [facility] [address] [place] [address] Dr. Reina Carter Eosinophils/100 WBC (Bld) 2.0 % Normal 0.9-7.0 [facility] Comment on above: Performed By: #### C BC #### [facility] [address] [place] [address] Dr. Reina Carter Erythrocyte distribution width (RBC) [Ratio] 13.2 % Normal 11.0-15.0 [facility] Comment on above: Performed By: #### C BC #### [facility] [address] [place] [address] Dr. Reina Carter Hematocrit (Bld) [Volume fraction] 42.7 % Normal 36.0-48.0 [facility] Comment on above: Performed By: #### C BC #### [facility] [address] [place] [address] Dr. Reina Carter Hemoglobin (Bld) [Mass/Vol] 13.7 g/dL Normal 12.0-16.0 [facility] Comment on above: Performed By: #### C BC #### [facility] [address] [place] [address] Dr. Reina Carter IG # 0.01 10e3/ul Normal 0.00-0.03 [facility] Comment on above: Performed By: #### C BC #### [facility] [address] [place] [address] Dr. Reina Carter IG % 0.2 % Normal 0.0-0.5 [facility] Comment on above: Performed By: #### C BC #### [facility] [address] [place] [address] Dr. Reina Carter LYMPH # 1.5 103/ul Normal 1.2-3.8 [facility] Comment on above: Performed By: #### C BC #### [facility] [address] [address] [address] Reina Carter Lymphocytes/100 WBC (Bld) 29.2 % Normal 20.5-60.0 [facility] Comment on above: Performed By: #### C BC #### [facility] [address] [address] [address] Reina Carter MANUAL DIFF REQ NO Normal [facility] Comment on above: Performed By: #### C BC #### [facility] [address] [place] [address] Dr. Reina Carter MCH (RBC) [Entitic mass] 28.7 pg Normal 26.7-34.0 [facility] Comment on above: Performed By: #### C BC #### [facility] [address] [place] [address] Dr. Reina Carter MCHC (RBC) [Mass/Vol] 32.1 g/dL Normal 29.9-35.2 [facility] Comment on above: Performed By: #### C BC #### [facility] [address] [place] [address] Dr. Reina Carter MCV (RBC) [Entitic vol] 89.5 fL Normal 81.0-99.0 [facility] Comment on above: Performed By: #### C BC #### [facility] [address] [place] [address] Dr. Reina Carter MONO # 0.3 103/ul Normal 0.3-0.8 [facility] Comment on above: Performed By: #### C BC #### [facility] [address] [place] [address] Dr. Reina Carter Monocytes/100 WBC (Bld) 6.7 % Normal 1.7-12.0 [facility] Comment on above: Performed By: #### C BC #### [facility] [address] [place] [address] Dr. Reina Carter NEUT # 3.0 103/ul Normal 1.4-6.5 [facility] Comment on above: Performed By: #### C BC #### [facility] [address] [address] [address] Reina Carter Neutrophils/100 WBC (Bld) 61.1 % Normal 43.0-75.0 [facility] Comment on above: Performed By: #### C BC #### [facility] [address] [place] [address] Dr. Reina Carter Platelet mean volume (Bld) [Entitic vol] 12.2 fL Normal 9.5-13.5 [facility] Comment on above: Performed By: #### C BC #### [facility] [address] [address] [address] Reina Carter PLT 208 103/ul Normal 150-450 [facility] Comment on above: Performed By: #### C BC #### [facility] [address] [place] [address] Dr. Reina Carter RBC 4.77 106/ul Normal 4.20-5.40 [facility] Comment on above: Performed By: #### C BC #### [facility] [address] [address] [address] Reina Carter WBC 5.0 103/ul Normal 4.0-11.0 [facility] Comment on above: Performed By: #### C BC #### [facility] [address] [address] [address] Reina Carter Complete Blood Count and Dif brannon 11-09-2022 Anisocytosis Ql (Bld) [employer] Other Basophilic stippling LM Ql (Bld) [facility] [employer] Other RBC morphology finding Nom (Bld) [facility] [employer] Other Complete Blood Count and Diff [employer] Other Comprehensive Metabolic Pane rex 11-09-2022 Albumin [Mass/Vol] 4.065535 g/dL 3.4-5.0 g/dL [facility] [employer] Other Calcium [Mass/Vol] 9.2887125 mg/dL 8.5-10 .1 mg/dL [employer] Other CO2 [Moles/Vol] 30.60986184 mmol/L 21.0-3 2.0 mmol/L [employer] Other Creatinine [Mass/Vol] 0.73495039 mg/dL 0.55-1.02 mg/dL [employer] Other Potassium [Moles/Vol] 3.36534795 mmol/L 3.5-5.1 mmol/L [employer] Other Protein [Mass/Vol] 7.743128 g/dL 6.4-8.2 g/dL [facility] [employer] Other Urea nitrogen [Mass/Vol] 7.2540566 mg/dL 7.0-18.0 mg/dL [employer] Other Comprehensive Metabolic Panel see note [employer] Other Comprehensive Metabolic Panel 141 mmol/L 136-145 mmol/L [employer] Other Comprehensive Metabolic Panel 91 mg/dL 74-106 mg/dL [employer] Other Comprehensive Metabolic Panel >60 mL/min/1.73m2 >=60 mL/min/1.73m2 [employer] Other Comprehensive Metabolic Panel 1.1 mg/dL Critically high 0.2-1.0 mg/dL [employer] Other Comprehensive Metabolic Panel 3.5 g/dL [employer] Other LIPID PROFILEon 11-09-2022 CHOL-HDL RATIO NORM SEE BELOW Normal [facility] Comment on above: Result Comment: 3.3 - 4.4 LOW RISK 4.4 - 7.1 AVERAGE RISK 7.1 - 11.0 MODERATE RISK >11.0 HIGH RISK Performed By: #### L GURMEET, CMP #### [facility] [address] [address] [address] Reina Carter Cholesterol [Mass/Vol] 103 mg/dL <=200 mg/dL [facility] Comment on above: Performed By: #### L IPAMOL, CMP #### [facility] [address] [address] [address] Reina Carter Cholesterol in HDL [Mass/Vol] 46 mg/dL 40-60 mg/dL [facility] Comment on above: Performed By: #### L IPID, CMP #### [facility] [address] [address] [address] Reina Carter Cholesterol in LDL [Mass/Vol] 39.4 mg/dL Normal [facility] Comment on above: Performed By: #### L IPID, CMP #### [facility] [address] [address] [address] Reina Carter Cholesterol.total/Ch olesterol in HDL [Mass ratio] 2.2 {ratio} [facility] Comment on above: Performed By: #### L IPID, CMP #### [facility] [address] [address] [address] Reina Carter HDL NORMAL > or = 60 mg/dl - LOW CARDIOVASCULAR RISK <40 mg/dl - HIGH CARDIOVASCULAR RISK Normal [facility] Comment on above: Performed By: #### L IPID, CMP #### [facility] [address] [address] [address] Reina Carter LDL CALC NORMAL SEE BELOW Normal [facility] Comment on above: Result Comment: <100 mg/dl OPTIMAL 100 - 129 mg/dl NEAR OR ABOVE OPTIMAL 130 - 159 mg/dl BORDERLINE HIGH 160 - 189 mg/dl HIGH >190 mg/dl VERY HIGH Performed By: #### L IPID, CMP #### [facility] [address] [address] [address] Reina Carter Triglyceride [Mass/Vol] 88 mg/dL <=150 mg/dL [facility] Comment on above: Performed By: #### L IPID, CMP #### [facility] [address] [place] [address] Dr. Reina Carter VLDL CALC 17.6 mg/dL Normal [facility] Comment on above: Performed By: #### L IPID, CMP #### [facility] [address] [address] [address] Reina Carter Lipid Panelon 11-09-2022 Lipid Panel > or = 60 mg/dl - LOW CARDIOVASCULAR RISK <40 mg/dl - HIGH CARDIOVASCULAR RISK [employer] Other Lipid Panel SEE BELOW [employer] Other Lipid Panel 39.4 mg/dL [employer] Other Lipid Panel 17.6 mg/dL [employer] Other PROF 14(COMP METB)on 023 Albumin [Mass/Vol] 4.0 g/dL Normal 3.4-5.0 [facility] Comment on above: Performed By: #### L IPID, CMP #### [facility] [address] [place] [address] Dr. Reina Carter Albumin/Globulin [Mass ratio] 1.1 {ratio} [facility] Comment on above: Performed By: #### L IPID, CMP #### [facility] [address] [place] [address] Dr. Reina Carter ALP [Catalytic activity/Vol] 91 U/L 46-116 U/L [facility] Comment on above: Performed By: #### L IPID, CMP #### [facility] [address] [place] [address] Dr. Reina Carter ALT [Catalytic activity/Vol] 33 U/L 14-59 U/L [facility] Comment on above: Performed By: #### L IPID, CMP #### [facility] [address] [place] [address] Dr. Reina Carter Anion gap [Moles/Vol] 11.5 mmol/L [facility] Comment on above: Performed By: #### L IPID, CMP #### [facility] [address] [place] [address] Dr. Reina Carter AST [Catalytic activity/Vol] 15 U/L 15-37 U/L [facility] Comment on above: Performed By: #### L IPID, CMP #### [facility] [address] [place] [address] Dr. Reina Carter Bilirubin [Mass/Vol] 1.1 mg/dL Critically high 0.2-1.0 [facility] Comment on above: Performed By: #### L IPID, CMP #### [facility] [address] [place] [address] Dr. Reina Carter Calcium [Mass/Vol] 9.1 mg/dL Normal 8.5-10.1 [facility] Comment on above: Performed By: #### L IPID, CMP #### [facility] [address] [place] [address] Dr. Reina Carter Chloride [Moles/Vol] 103 mmol/L 98-107 mmol/L [facility] Comment on above: Performed By: #### L IPID, CMP #### [facility] [address] [place] [address] Dr. Reina Carter CO2 [Moles/Vol] 30.4 mmol/L Normal 21.0-32.0 [facility] Comment on above: Performed By: #### L IPID, CMP #### [facility] [address] [place] [address] Dr. Reina Carter Creatinine [Mass/Vol] 0.84 mg/dL Normal 0.55-1.02 [facility] Comment on above: Performed By: #### L IPID, CMP #### [facility] [address] [place] [address] Dr. Reina Carter EGFR-AF GUAMANIAN >60 Normal >=60 [facility] Comment on above: Performed By: #### L IPID, CMP #### [facility] [address] [place] [address] Dr. Reina Carter EGFR-NON AF GUAMANIAN >60 Normal >=60 [facility] Comment on above: Performed By: #### L IPID, CMP #### [facility] [address] [place] [address] Dr. Reina Carter Globulin (S) [Mass/Vol] 3.5 g/dL Normal [facility] Comment on above: Performed By: #### L IPID, CMP #### [facility] [address] [place] [address] Dr. Reina Carter Glucose [Mass/Vol] 91 mg/dL Normal 74-106 [facility] Comment on above: Performed By: #### L IPID, CMP #### [facility] [address] [place] [address] Dr. Reina Carter Potassium [Moles/Vol] 3.9 mmol/L Normal 3.5-5.1 [facility] Comment on above: Performed By: #### L IPID, CMP #### [facility] [address] [place] [address] Dr. Reina Carter Protein [Mass/Vol] 7.5 g/dL Normal 6.4-8.2 [facility] Comment on above: Performed By: #### L IPID, CMP #### [facility] [address] [place] [address] Dr. Reina Carter Sodium [Moles/Vol] 141 mmol/L Normal 136-145 [facility] Comment on above: Performed By: #### L IPID, CMP #### [facility] [address] [place] [address] Dr. Reina Carter Urea nitrogen [Mass/Vol] 7.0 mg/dL Normal 7.0-18.0 [facility] Comment on above: Performed By: #### L IPID, CMP #### [facility] [address] [place] [address] Dr. Reina Carter Urea nitrogen/Creatinine [Mass ratio] 8.3 mg/mg [facility] Comment on above: Performed By: #### L IPID, CMP #### [facility] [address] [place] [address] Dr. Reina Carter MG MAMM SCREEN 3D HERBERTH CADon 10-19-2022 MG MAMM SCREEN 3D HERBERTH CAD Patient: SHALINI SHAH Exam Date: 10/19/2022 : 1965 Gender:F Ordering : DR HIEN MARIA [facility] Admission #: [id number] Family : DR RAE MAC M.D. Order #: [id number] CLICK HERE TO VIEW EXAM RADIOLOGY REPORT PROCEDURE: MAMMOGRAM SCREENING 3D BILATERAL CAD COMPARISON: MG MAMM LT DIAG FU, 10/13/2020. MG MAMM SCREEN 3D HERBERTH CAD, 10/12/2021. INDICATIONS: Screening mammography Calculator Name NCI Breast Cancer Risk Assessment Tool 5 Year Breast Cancer Risk 1.00% Lifetime Breast Cancer Risk 6.90% Personal Breast Cancer No Personal Ovarian Cancer No Treatments None Family Cancers None LOCATION: [facility] BREAST COMPOSITION: Scattered areas fibroglandular density. [...] on 10/20/2022 at 07:10 Approved by: Tabatha Flowesr MD on 10/20/2022 at 07:12 Normal [facility] CHOLESTEROL TOTALon 01-31-20 22 Cholesterol [Mass/Vol] 119 mg/dL Normal <=200 [facility] Comment on above: Performed By: #### A LT, CHOL #### [facility] [address] [place] [address] Dr. Reina Carter [facility] 01-30-2022 ALT [Catalytic activity/Vol] 34 U/L Normal 14-59 [facility] Comment on above: Performed By: #### A LT, CHOL #### [facility] [address] [place] [address] Dr. Reina Carter Vital Signs Date Time Vital Sign Value Performing Clinician Facility 11-15-2023 15:15-0500 Blood Pressure Location Doug JEREMIAH [facility] 11-15-2023 15:15-0500 Diastolic blood pressure 78 mm[Hg] Doug TODDL [facility] 11-15-2023 15:15-0500 Heart rate 72 /min Doug TODDL [facility] 11-15-2023 15:15-0500 Respiratory rate 16 /min Doug TODDL [facility] 11-15-2023 15:15-0500 Systolic blood pressure 116 mm[Hg] Doug DIA [facility] [place] 11-03-2023 15:24-0500 Body height 172.72 cm Hernesto Ball Other [employer] Other 10-18-2023 15:30-0500 Body height 172.72 cm Hernesto Ball Other [employer] Other 10-18-2023 15:30-0500 Body mass index (BMI) [Ratio] 22.96 kg/m2 Hernesto Ball Other [employer] Other 10-18-2023 15:30-0500 Body weight 68.49 kg Hernesto Ball Other [employer] Other 10-18-2023 15:30-0500 Diastolic blood pressure 73 mm[Hg] Hernesto Ball Other [employer] Other 10-18-2023 15:30-0500 Systolic blood pressure 120 mm[Hg] Hernesto Ball Other [employer] Other 10-13-2022 16:30-0500 Body height 172.72 cm Hernesto Ball Other [employer] Other 10-13-2022 16:30-0500 Body mass index (BMI) [Ratio] 22.44 kg/m2 Hernesto Ball Other [employer] Other 10-13-2022 16:30-0500 Body weight 66.95 kg Hernesto Ball Other [employer] Other 10-13-2022 16:30-0500 Diastolic blood pressure 86 mm[Hg] Hernesto Ball Other [employer] Other 10-13-2022 16:30-0500 Respiratory rate 12 /min Hernesto Wesley Other [employer] Other 10-13-2022 16:30-0500 Systolic blood pressure 126 mm[Hg] Hernesto Wesley Other [employer] Other Encounters Encounter Date Encounter Type Care Provider Facility Start: 05-04-2024 End: 05-04-2024 ambulatory [facility] Work Phone: Start: 05-04-2024 End: 05-04-2024 Patient encounter procedure [facility] Work Phone: Start: 11-30-2023 End: 12-01-2023 ambulatory Doug R NILL Facility: [facility] Start: 11-15-2023 End: 11-16-2023 ambulatory [facility] Start: 11-15-2023 End: 11-15-2023 Patient encounter procedure Doug R NILL [facility] Start: 11-07-2023 ambulatory Doug NILL Facility:[facility] Start: 11-03-2023 End: 11-03-2023 ambulatory Hernesto Wesley Other [employer] Other Start: 11-03-2023 Telephone encounter Hernesto Lupillo [facility] Start: 11-01-2023 End: 11-01-2023 ambulatory Hernesto Wesley Other [employer] Other Start: 11-01-2023 Telephone encounter Hernesto Lupillo [facility] Start: 10-18-2023 End: 10-18-2023 ambulatory Hernesto Wesley Other [employer] Other Start: 10-18-2023 Encounter for genera l adult medical examination without abnormal findings Hernesto Wesley [facility] Start: 10-18-2023 Periodic preventive med est patient 40-64yrs Hernesto Wesley [facility] Start: 09-08-2023 End: 09-08-2023 ambulatory Hernesto Wesley Other [employer] Other Start: 09-08-2023 Telephone encounter Hernesto Lupillo [facility] Start: 04-28-2023 End: 04-28-2023 ambulatory Hernesto Lupillo Other [employer] Other Start: 04-28-2023 Telephone encounter Hernesto Lupillo [facility] Start: 04-12-2023 End: 04-12-2023 ambulatory Hernesto Wesley Other [employer] Other Start: 04-12-2023 Telephone encounter Hernesto Lupillo [facility] Start: 12-08-2022 End: 12-08-2022 ambulatory Hernesto Wesley Other [employer] Other Start: 12-08-2022 Telephone encounter Hernesto Wesley [facility] Start: 11-17-2022 End: 11-17-2022 ambulatory Hernesto Wesley Other [employer] Other Start: 11-17-2022 Telephone encounter Hernesto Wesley [facility] Start: 11-16-2022 Telephone encounter Hernesto Wesley [facility] Start: 11-16-2022 End: 11-17-[address] HERNESTO WESLEY Facility:[facility] Start: 11-10-2022 Encounter for genera l adult medical examination without abnormal findings DR HERNESTO WESLEY [facility] Start: 11-09-2022 End: 11-10-[address] HERNESTO WESLEY Facility:[facility] Start: 11-09-2022 End: 11-10-2022 Encounter for general adult medical examination without abnormal findings DR HERNESTO WESLEY Facility:[facility] Start: 11-08-2022 End: 11-08-2022 ambulatory Hernesto Wesley Other [employer] Other Start: 11-08-2022 Encounter for genera l adult medical examination without abnormal findings Hernesto Wesley [facility] Start: 11-08-2022 Telephone encounter Hernesto [facility] Start: 10-19-2022 End: 10-20-[address] HERNESTO WESLEY Facility:[facility] Start: 10-14-2022 End: 10-14-2022 ambulatory Hernesto Wesley Other [employer] Other Start: 10-14-2022 Telephone encounter Hernesto Wesley [facility] Start: 10-13-2022 End: 10-13-2022 ambulatory Hernesto Wesley Other [employer] Other Start: 10-13-2022 Patient encounter procedure Hernesto Wesley [facility] Start: 10-13-2022 Periodic preventive med est patient 40-64yrs Hernesto Wesley [facility] Start: 01-30-2022 End: 01-31-[address] HERNESTO WESLEY Facility:[facility] Start: 08-24-2021 Adult health examination Hernesto Wesley Other [employer] Other Procedures Date Procedure Procedure Detail Performing Clinician Start: 09-09-2017 General examination of patient Hernesto Wesley Other section Doug NIL L Cholecystectomy Doug PEREZL Depression screening Anupama Wesley Other Total abdominal hyst erectomy with bilateral salpingo-oophorectomy Doug TODDL Immunizations Immunization Date Immunization Notes Care Provider Tamiko richmond 08-04-2023 influenza virus vaccine, unspecified formulation Doug NILL [facility] [place] 08-22-2021 SARS-CoV-2 (COVID-19 ) mRNA-1270 vaccine Doug NILL [facility] [place] 01-03-2021 SARS-CoV-2 (COVID-19 ) mRNA-1273 vaccine Doug NILL [facility] [place] 12-06-2020 SARS-CoV-2 (COVID-19 ) mRNA-1273 vaccine Doug NILL [facility] [place] Payers Date Payer Category Payer Private Health Insurance 1965 Unknown [id number] 2.16.84 [id number] 1965 Unknown [id number] 2.16.84 [id number] 1965 Unknown [id number] 2.16.84 [id number] 1965 Unknown [id number] 2.16.84 [id number] 1965 Unknown [id number] 2.16.8 [id number] 1965 Unknown [id number] 2.16.8 [id number] 1965 Unknown [id number] 2.16.8 [id number] 1958 Unknown [id number] Social History Date Type Detail Facility Sex Assigned At [facility] Start: 11-15-2023 Tobacco smoking status Never s moked tobacco (finding) [facility] [place] Tobacco smoking status Never Gener [facility] [place] Start: 1965 Sex Assigned At Female F [facility] Functional Status Date Assessment Result Facility 11-15-2023 Functional Status N/A General [facility] Clinical Notes 10-13-2022 to 11-15-2023 Note Date [...] Recorded SARS-CoV-2 (COVID-19) mRNA-1273 vaccine 12/06/2020 Recorded [facility] Comment on above: Result Comment: Elec tronically Signed By: JEREMIAH MCDANIEL, Doug Mo\Date and Time Signed: 11/15/23 15:40 EST 11-03-2023 Evaluation note Encounter Date Diagnosis Assessment Notes Nov, Positive colorectal cancer screening using Cologuard test (ICD-10 - R19.5) Nov, Screening for colon cancer (ICD-10 - Z12.11) [employer] Other 01-16-2024 Evaluation note* Encounter Date Diagnosis [...] change in bowel habits, melena or hematochezia [employer] Other 02-14-2023 Evaluation note* Encounter Date Diagnosis Assessment Notes Treatment Notes Treatment Clinical Notes Nov, Bicuspid aortic valve (ICD-10 - Q23.1) Echo: LVEF 55%, KATRIN 1.6cm, Velocity 125, pk/mean 13/7 - 11/2022 [employer] Other 02-06-2023 Evaluation note* Encounter Date Diagnosis Assessment Notes Treatment Notes Treatment Clinical Notes Nov, Wellness examination (ICD-10 - Z00.00) Nov, Bicuspid aortic valve (ICD-10 - Q23.1) [employer] Other 01-12-2023 Evaluation note* Encounter Date Diagnosis Assessment Notes Treatment Notes Treatment Clinical Notes Oct, Acute stress reaction (ICD-10 - F43.0) [employer] Other 01-11-2023 Evaluation note* Encounter Date Diagnosis [...] due to ADR Healthy diet and exercise [employer] Other Evaluation + Plan note No data available for this section General [facility] [place] Evaluation noteNo InformationNort [employer] Other Evaluation noteNo assessment information available [facility] Work Phone: History general Narrative - [...] ith BSO Hospitalization History see surgical history [employer] Other Hospital Discharge instructions No data available for this section General Surgery [place] Progress note No data available for this section General Surgery [place] Reason for referral (narrative)* Reason Referral for screeni ng colonoscopy Diagnosis 1 Positive colorectal cancer screening using Cologuard test (R19.5) Referral Organization [facility] L[facility] gu[facility]ro Referring Provider First Name Hernesto Referring Provider Last Name Lupillo Referring Provider Specialty Internal Me adrian Referred Organization [facility] Referred Provider Doug Dia Referred Address [address] [place], [place],[address] Referred Provider Specialty Surgery Referral Priority Routine General Notes Asymptomatic, low ri sk patient with positive Cologuard test. She denies change in appetite, weight or bowel habits. She denies abdominal pain, melena or hematochezia. [employer] Other Summary Purpose Family History Relationship Condition Age at Onset Recorded Date/T nancy father Heart disease Unknown Unknown Advance Directives Advance Directive Response Recorded Date/ Time Advance Directives No May 04 1:23pm Chief Complaint and Reason for Visit Chief Complaint lower abdominal pain //urine sample Additional Source Comments INFORMATION SOURCE (unrecogn ized section and content) DATE CREATED AUTHOR 11/21/2022 [facility] [place] [facility] DATE CREATED AUTHOR AUTHOR'S ORGANIZ ATION 12/08/2023 [facility] REASON FOR VISIT (unrecogniz ed section [...] BE BASED ON THE PRIMARY CLINICAL RECORDS. [employer] provides no warranty or guarantee of the accuracy or completeness of information in this document.
[2024-11-02 08:52] LABS: Chol HDL Ratio 1.9; Cholesterol 104 mg/dL (<=200); Glucose 83 mg/dL (74-106); HDL Cholesterol 54 mg/dL (40-60); LDL Cholesterol Calculated 37.4 mg/dL; Thyroid Stimulating Hormone 1.429 uIU/mL (0.358-3.740); Triglycerides 63 mg/dL (<=150); VLDL CHOLESTEROL 12.6 mg/dL
== END 2024-11-02 07:08 | disposition home or self-care (01) ==
LOC: LAB 07:09
PROVIDERS: PCP Internal Medicine; Visit Provider Nurse Practitioner Adult Health
DX: Z00.00 Encounter for general adult medical examination without abnormal findings (principal)
CPT/HCPCS: 36415; 80061; 82306; 82947; 84443

== ENCOUNTER 2025-01-07 11:52 | Outpatient (OUT) | payer BC, SELFPAY ==
--- NOTE | 2025-01-07 12:03 | XR_ITS ---
The [address] [address] Patient Name: ESTELLA SHAH MRN: [id number] date: 1965 Sex: F Assigned Patient Location: [facility] Current Patient Location: [facility] Accession/Order Number: [id number] Exam Date: 01/07/2025 13:28 Report Date: 01/07/2025 13:29 At the request of: FAUSTO PERAZA DO Procedure: XR knee RT 4V 4 views right knee plain film COMPARISON: None HISTORY: Acute right knee pain. One week duration. No injury ACUTE FINDINGS: No acute findings DEGENERATIVE CHANGE: Superior patellar enthesophyte SOFT TISSUE FINDINGS: Unremarkable JOINT EFFUSION: None POSTOP CHANGES: None BONE MINERALIZATION: Adequate XR/XR knee RT 4V IMPRESSION: No acute findings or significant degeneration. Impression dictated by: Grover Kennedy M.D.01/07/2025 1:29 PM Dictation Location: [place] [address] Electronically authenticated by: [id number] Y Date: 01/07/2025 13:29
== END 2025-01-07 11:53 | disposition home or self-care (01) ==
LOC: RAD 11:54
PROVIDERS: PCP Internal Medicine; Visit Provider Internal Medicine
DX: M25.561 Pain in right knee (principal)
CPT/HCPCS: 73564

== ENCOUNTER 2025-04-09 13:00 | Emergency (ER) | payer BC, SELFPAY ==
--- OUTSIDE RECORDS SUMMARY | 2020-03-08 07:15 | XMS_ITS | Continuity of Care Document ---
Author Organization 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 This test has not been FDA cleared orapproved. This test has been authorized by FDA under an Emergency UseAuthorization (EUA). This test is only authorized for the duration oftime the declaration that circumstances exist justifying theauthorization of the emergency use of in vitro diagnostic tests fordetection of SARS-CoV-2 virus and/or diagnosis of COVID-19 infectionunder section 564(b)(1) of the Act, 21 U.S.C. 360bbb-3(b)(1), unlessthe authorization is terminated or revoked sooner.When diagnostic testing is negative, the possibility of a falsenegative result should be considered in the context of a patient'srecent exposures and the presence of clinical signs and symptomsconsistent with COVID-19. An individual without symptoms of COVID-19and who is not shedding SARS-CoV-2 virus would expect to have anegative (not detected) result in this assay.Performed by:[facility] ([place] Panel Description: SARS-CoV-2 Antibody, IgM [facility] SARS-CoV- 2 Antibody, IgM Ian-07-2 020 13:28:00 Negative Negative Final This sample do es not contain detectable SARS-CoV-2 IgM antibodies.This negative result does not rule out SARS-CoV-2 infection.Correlation with epidemiologic risk factors and other clinical andlaboratory findings is recommended. Serologic results should not beused as the sole basis to diagnose or exclude recent [id number].P erformed by:[facility] ([place]) Panel Description: SARS-CoV-2 Antibody, IgG [facility] SARS-CoV- 2 Antibody, IgG 020 07:27:00 Negative Negative Final This sample do es not contain detectable SARS-CoV-2 IgG antibodies.This negative result does not rule out SARS-CoV-2 infection.Correlation with epidemiologic risk factors and other clinical andlaboratory findings is recommended. Serologic results should not beused as the sole basis to diagnose or exclude recent [id number].T his assay was performed using the Mi SARS-CoV-2 IgG assay.Performed by:[facility] ([place]) Advance Directives Directive Yes / No Effective Date File Name No Information Encounters Encounter Description Practice Location Reason(s) For Visit Diagnoses Date Provider Providers Copied on Encounter [facility], [address] [place] [address], [id number], [place] tel:[phone] COVID [facility] Encounter for screening for other viral diseases Lizy Hernandez. [address] [place] [address], [id number], [place]. tel:[phone] Family History Family Member Type Diagnosis Age At Onset No Information Payers Payer name Insurance type Covered republican ID Ramya vickimitra(s) Sherwinnicholasmarcelle [id number] Social History Type Description Quantity Date Captured Comments Alcohol Use Details Unknown Caffeine Use Details Unknown Tobacco Use Status No Information Smoking Status No Information Sex Female Sexual Orientation Straight or heterosexual Gender Identity Female Chief Complaint And Reason For Visit No Information Reason For Referral Reason For Referral No Information History Of Present Illness Encounter Date Complaint History Of Prese nt Illness No Information Functional Status Date Functional Assessmen t No Information Instructions Date Instruction Additional Infor mation No Information Assessments Type Assessment Date assessment Encounter for screening for othe r viral diseases Patient Care Teams Name Effective Dates (start - stop) Status Members No Information
[2025-04-09 13:04] VITALS: BP 128/89; PULSE 89; TEMP 36.6; O2SAT 98; BMI 20.7
--- OUTSIDE RECORDS SUMMARY | 2025-04-09 13:09 | XMS_ITS | Clinical Summary ---
Author Organization [facility] Address [address] [place] [address] Care Team Providers Care Wire Coiner Name Role Phone Enrique Gil Unavailable [phone] Allergies Active Allergy Reactions Criticality Noted Date Comments Hydrocodone-Acetaminophen GI Upset 04/23/2016 Medications Amphetamine-Dext roamphetamine 15 mg tablet Take by mouth once daily. Active Estradiol (ESTRACE) 0.5 mg tablet Take by mouth once daily. Active estrogens conjugated synthetic A (CENESTIN) 0.625 mg tablet Take by mouth once daily. Active Active Problems No known active problems Family History Medical History Relation Comments Heart Father d. 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 Not on file Not on file Last Filed Vital Signs Vital Sign Reading Time Taken Comments Blood Pressure 144/87 05/10/2016 8:30 AM EDT Pulse 94 05/10/2016 8:30 AM EDT Temperature - - Respiratory Rate 16 05/10/2016 8:30 AM EDT Oxygen Saturation 98% 05/10/2016 8:30 AM EDT Inhaled Oxygen Concentration - - Weight 61.2 kg (135 lb) 04/23/2016 12:05 PM EDT Height 172.7 cm (5' 8 ) 04/23/2016 12:05 PM EDT Body Mass Index 20.53 04/23/2016 12:05 PM EDT Plan of Treatment Health Maintenance Due Date Last Done Comments Anxiety Screening 1984 Depression Screening 1984 HIV Screening 1984 Hepatitis C Screening 1984 DTaP,Tdap,Td Vaccine (1 - Tdap) 1985 Hepatitis B Vaccine (1 of 3 - 19+ 3-dose series) 06/04 Cervical Cancer Screening [address] Colonography 2011 Cologuard (FIT-DNA) 2011 Colonoscopy 2011 Colorectal Cancer Screening 2011 Diabetes Screening 2011 Fecal Occult Blood 2011 Lipid Screening 2011 Sigmoidoscopy 2011 Pneumococcal Vaccine: 50+ (1 of 1 - PCV) 2016 Shingrix Vaccine (1 of 2) 2016 Covid-19 Vaccine (1 - season) 2024 Influenza Vaccine (#1) 2025 Insurance [employer] Care Teams Wire Coiner Relationship Specialty Start Date End Date Enrique Gil [address] [place] [address] Primary Staff Physician Cardiology 12/19/18
--- NOTE | 2025-04-09 13:12 | CT_ITS ---
[address] [address] Patient Name: ESTELLA SHAH MRN: [id number] date: 1965 Sex: F Assigned Patient Location: ER Current Patient Location: ER Accession/Order Number: [id number] Exam Date: 04/09/2025 14:39 Report Date: 04/09/2025 14:44 At the request of: YANNI QUINTANILLA NP Procedure: CT abdomen pelvis wo con CT abdomen pelvis wo con 04/09/2025 2:20 PM SIGNS AND SYMPTOMS: ^R flank pain, r/o stone, hx choley and hysterectom TECHNIQUE: Multidetector ct axial images of the abdomen and pelvis were obtained without IV contrast. Multiplanar reformats were performed and reviewed to further define anatomy and possible pathology. CT was performed with one or more of the following dose reduction techniques: Automated exposure control, adjustment of the mA and/or kV according to patient size, or use of iterative reconstruction technique. COMPARISON: None. FINDINGS: Lower Chest: Within normal limits. ABDOMEN: Liver: Within normal limits. Bile Ducts: Normal caliber. Gallbladder: Previously removed. Pancreas: Within normal limits. Spleen: Within normal limits. Adrenals: Within normal limits. Kidneys: There is a simple cyst in the left renal cortex requiring no further follow-up. There is a 2 mm nonobstructing stone in the left renal collecting system. There is a 5 mm nonobstructing stone in the right renal collecting system. There is right-sided hydronephrosis. Pelvis: Reproductive Organs: No pelvic masses. Ureters: There is a 4 mm stone at the right ureterovesical junction with right-sided hydroureter. Bladder: Within normal limits. Bowel: There are uncomplicated colonic diverticula. There is no evidence of bowel obstruction. Mesenteric Lymph Nodes: No enlarged mesenteric lymph nodes. Peritoneum: No ascites or free air, no fluid collection. Vessels: Atherosclerotic changes are noted in the abdominal aorta. Retroperitoneum: Within normal limits. Abdominal Wall: Within normal limits. Bones: Degenerative changes are noted in the thoracolumbar spine and sacroiliac joints. CT/CT abdomen pelvis wo con IMPRESSION: There is a 4 mm stone at the right ureterovesical junction contributing to right-sided hydronephrosis and hydroureter. Nonobstructing stones are noted in the renal collecting systems bilaterally. Impression dictated by: Abdiel Han M.D. 04/09/2025 2:44 PM Dictation Location: [place] [address] Electronically authenticated by: [id number] Y Date: 04/09/2025 14:44
[2025-04-09] MEDS: KETOROLAC TROMETHAMINE 30 MG/ML VIAL IVP (13:27)
[2025-04-09 13:28] LABS: Hematocrit 42.5 % (36.0-48.0); Hemoglobin 14.8 g/dL (12.0-16.0); Immature Granulocytes Abs Auto 0.02 10^3/uL (0.00-0.03); Immature Granulocytes Pct Auto 0.3 % (0.0-0.5); Lymphocytes Absolute Auto 1.8 10^3/uL (1.2-3.8); Mean Corpuscular HGB Conc 34.8 g/dL (29.9-35.2); Mean Corpuscular Hemoglobin 29.9 pg (26.7-34.0); Mean Corpuscular Volume 85.9 fL (81.0-99.0); Platelet Count 267 10^3/uL (150-450); Red Blood Count 4.95 10^6/uL (4.20-5.40); White Blood Count 7.2 10^3/uL (4.0-11.0)
[2025-04-09] MEDS: 0.9 % SODIUM CHLORIDE 1,000 ML 1000 ML IV (13:29)
--- NOTE | 2025-04-09 13:42 | ED.GENADUL1 ---
HPI HPI - General Adult General Chief complaint: Abdominal Pain Stated complaint: R SIDE PAIN Time Seen by Provider: 04/09/25 13:07 Source: patient Mode of arrival: walk-in Limitations: no limitations History of Present Illness HPI narrative: The patient is a 59-year-old female who presents to the emergency department today for evaluation of concerns for right flank pain. She endorses she woke up this morning with a colicky like pain with associated symptoms of nausea. She has any history of kidney stones. No abdominal pain, diarrhea, or urinary symptoms. She reports a remote history of a hysterectomy and cholecystectomy. Related Data Home Medications ?Medication ?Instructions ?Recorded ?Confirmed amlodipine 5 mg tablet 5 mg PO DAILY 11/22/23 11/30/23 atorvastatin 40 mg tablet 40 mg PO DAILY 11/22/23 11/30/23 biotin 10,000 mcg chewable tablet mcg PO 11/22/23 (Hair, Skin and Nails (biotin)) cholecalciferol (vit D3) 137.5 mcg 1 tab PO DAILY 11/22/23 11/30/23 (5,500 unit)-vit K2 200 mcg tablet (DosoKap) estradiol 0.5 mg tablet 0.5 mg PO DAILY 11/22/23 11/30/23 magnesium glycinate mg PO 11/22/23 Previous Rx's ?Medication ?Instructions ?Recorded ondansetron 4 mg disintegrating 4 mg PO Q8H PRN nausea and 04/09/25 tablet vomiting 4 days #10 tabs tamsulosin 0.4 mg capsule 0.4 mg PO DAILY #10 caps 04/09/25 tramadol 50 mg tablet 50 mg PO TID PRN pain #7 tabs 04/09/25 Allergies Allergy/AdvReac Type Severity Reaction Status Date / Time acetaminophen (From Vicodin) Allergy Vomiting Verified 04/09/25 13:08 hydrocodone (From Vicodin) Allergy Vomiting Verified 04/09/25 13:08 lisinopril Allergy Cough Verified 04/09/25 13:08 Opioid HPI Opioid Management Most Recent Opioid Data: Last Pain Scale 2 Today, 14:26 Last ED Pain Assessment Today, 14:00 Last MAR Pain Assessment Today, 13:27 Review of Systems ROS Status of ROS 10 or more systems reviewed and unremarkable except as noted in history and below [facility] Medical History (Updated 04/09/25 @ 14:52 by Wilfredo Sutherland NP) COVID-19 ?U07.1 - COVID-19 (ICD-10) Heart murmur ?R01.1 - Cardiac murmur, unspecified (ICD-10) Aortic stenosis ?I35.0 - Nonrheumatic aortic (valve) stenosis (ICD-10) Migraine ?G43.909 - Migraine, unspecified, not intractable, without status migrainosus (ICD-10) Hypercholesterolemia ?E78.00 - Pure hypercholesterolemia, unspecified (ICD-10) Hypertension ?I10 - Essential (primary) hypertension (ICD-10) Bicuspid aortic valve ?Q23.1 - Congenital insufficiency of aortic valve (ICD-10) Attention deficit hyperactivity disorder ?F90.9 - Attention-deficit hyperactivity disorder, unspecified type (ICD-10) Seasonal allergic rhinitis ?J30.2 - Other seasonal allergic rhinitis (ICD-10) Positive colorectal cancer screening using Cologuard test ?R19.5 - Other fecal abnormalities (ICD-10) Surgical History (Updated 11/22/23 @ 13:36 by Maame Isbell NP) History of laparoscopy ?Z98.890 - Other specified postprocedural states (ICD-10) H/O bilateral salpingo-oophorectomy ?Z90.79 - Acquired absence of other genital organ(s) (ICD-10) ?Z90.722 - Acquired absence of ovaries, bilateral (ICD-10) History of hysterectomy ?Z90.710 - Acquired absence of both cervix and uterus (ICD-10) History of cholecystectomy ?Z90.49 - Acquired absence of other specified parts of digestive tract (ICD-10) H/O section ?Z98.891 - History of uterine scar from previous surgery (ICD-10) Family History (Updated 11/22/23 @ 13:36 by Maame Isbell NP) Other Delayed recovery from anesthesia Family history of diabetes mellitus Family history of stroke Heart disease Social History (Updated 11/22/23 @ 13:33 by Maame Isbell NP) Within the past year, how often did you have a drink containing alcohol: never Score interpretation: A score less than 3 is consistent with normal alcohol consumption. 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 Highest level of school completed/degree received: high school graduate Little interest or pleasure in doing things: not at all Feeling down, depressed, or hopeless: not at all Exam Narrative Exam Narrative: Constituational: Awake/ alert, no apparent distress, well hydrated HENMT: normocephalic, external ears normal, moist oral mucous membranes and oropharynx normal Eyes: EOMI and conjunctivae normal Neck: ROM intact Chest: inspection of chest normal Respiratory: Normal respiratory effort, clear to auscultation bilaterally Cardio: regular rate and regular rhythm GI: soft to palpation and non-tender Back: nontender MSK: ROM intact, +NVI Skin: no rashes or petechiae Neuro: no focal deficits Psych: mental status grossly normal Constitutional Vital Signs, click to edit/add: Last Vital Signs Temp 97.8 F 04/09/25 13:04 Pulse 73 04/09/25 14:27 Resp 16 04/09/25 14:27 BP 135/68 04/09/25 14:27 Pulse Ox 100 04/09/25 14:27 O2 Del Method Room Air 04/09/25 14:27 Course Vital Signs Vital signs: Vital Signs Temperature 97.8 F 04/09/25 13:04 Pulse Rate 89 04/09/25 13:04 Respiratory Rate 16 04/09/25 13:04 Blood Pressure 128/89 04/09/25 13:04 Pulse Oximetry 98 04/09/25 13:04 Oxygen Delivery Method Room Air 04/09/25 13:04 Temperature 97.8 F 04/09/25 13:04 Pulse Rate 73 04/09/25 14:27 Respiratory Rate 16 04/09/25 14:27 Blood Pressure 135/68 04/09/25 14:27 Pulse Oximetry 100 04/09/25 14:27 Oxygen Delivery Method Room Air 04/09/25 14:27 Medical Decision Making [facility] Narrative Medical decision making narrative: The patient is a 59-year-old female who presented to the emergency department today for evaluation concerns for colicky right flank pain. Initial examination vital signs overall stable. No acute abdominal findings on exam. On serial reevaluation she did endorse some return of the flank pain and she did receive Toradol and subsequently morphine for this with Zofran and IV fluids. On reevaluation she reports an improvement in condition. Labs stable as below. UA for UTI however there is noted trace occult blood present. CT imaging of abdomen and pelvis show 4 mm stone at right UVJ. Discussed these findings with the patient including recommendations for supportive care. Will discharge home with Ultram for severe pain in addition to Zofran, and tamsulosin. She was provided referral information for urology in [place]. Discussed signs and symptoms of any worsening condition and when to consider reevaluation by the emergency department. Patient verbalized an understanding of this and is agreeable with the plan to be discharged home. Medical Records Medical records reviewed: Yes I reviewed the patient's medical records Lab Data Lab results reviewed: Yes I reviewed the patient's lab results Labs: Lab Results 04/09/25 04/09/25 Range/Units 13:18 14:33 WBC 7.2 (4.0-11.0) 10^3/uL RBC 4.95 (4.20-5.40) 10^6/uL Hgb 14.8 (12.0-16.0) g/dL Hct 42.5 (36.0-48.0) % MCV 85.9 (81.0-99.0) fL MCH 29.9 (26.7-34.0) pg MCHC 34.8 (29.9-35.2) g/dL RDW 12.7 (11.0-15.0) % Plt Count 267 (150-450) 10^3/uL MPV 11.1 (9.5-13.5) fL Neut % (Auto) 66.3 (43.0-75.0) % Lymph % (Auto) 25.1 (20.5-60.0) % Gulf % (Auto) 6.1 (1.7-12.0) % Eos % (Auto) 1.4 (0.9-7.0) % Baso % (Auto) 0.8 (0.2-2.0) % Neut # (Auto) 4.8 (1.4-6.5) 10^3/uL Lymph # (Auto) 1.8 (1.2-3.8) 10^3/uL Gulf # (Auto) 0.4 (0.3-0.8) 10^3/uL Eos # (Auto) 0.1 (0.0-0.7) 10^3/uL Baso # (Auto) 0.1 (0.0-0.1) 10^3/uL Abs Immat Gran (auto) 0.02 (0.00-0.03) 10^3/uL Imm/Tot Granulo (auto) 0.3 (0.0-0.5) % Sodium 142 (136-145) mmol/L Potassium 4.2 (3.5-5.1) mmol/L Chloride 103 (98-107) mmol/L Carbon Dioxide 28.9 (21.0-32.0) mmol/L Anion Gap 14.3 BUN 15.0 (7.0-18.0) mg/dL Creatinine 0.88 (0.55-1.02) mg/dL Est GFR ( Amer) >60 (>=60 mL/min/1.73m^2) Est GFR (Non-Af Amer) >60 (>=60 mL/min/1.73m^2) BUN/Creatinine Ratio 17.0 Glucose 123 H (74-106) mg/dL Calcium 9.5 (8.5-10.1) mg/dL Total Bilirubin 1.0 (0.2-1.0) mg/dL AST 23 (15-37) U/L ALT 27 (14-59) U/L Alkaline Phosphatase 96 (46-116) U/L Total Protein 8.2 (6.4-8.2) g/dL Albumin 4.5 (3.4-5.0) g/dL Globulin 3.7 g/dL Albumin/Globulin Ratio 1.2 Urine Color Lt. yellow (YELLOW) Urine Clarity Clear (CLEAR) Urine pH 7.5 (5.0-9.0) Ur Specific Alexis 1.010 (1.005-1.025) Urine Protein Negative (NEG/TRACE) mg/dL Urine Glucose (UA) Negative (NEGATIVE) mg/dL Urine Ketones Negative (NEGATIVE) mg/dL Urine Occult Blood Trace-l (NEGATIVE) Urine Nitrite Negative (NEGATIVE) Urine Bilirubin Negative (NEGATIVE) Urine Urobilinogen 0.2 (0.2-1.0) EU/dL Ur Leukocyte Esterase Negative (NEGATIVE) Urine RBC 2-5 A (0-2) #/HPF Urine WBC None seen (NONE SEEN) #/HPF Ur Squamous Epith Cells Few A (NONE/RARE) #/LPF Urine Crystals None seen (None Seen) #/HPF Urine Bacteria Trace A (NONE SEEN) #/HPF Urine Casts None seen (NONE SEEN) #/LPF Urine Mucus None seen (NONE SEEN) Ur Culture Indicated? No Imaging Data CT scan - abdomen: Radiologist's impression: ITS Impressions Abdomen/Pelvis CT 04/09/25 13:12 IMPRESSION: There is a 4 mm stone at the right ureterovesical junction contributing to right-sided hydronephrosis and hydroureter. Nonobstructing stones are noted in the renal collecting systems bilaterally. Impression dictated by: Abdiel Han M.D. 04/09/2025 2:44 PM Dictation [facility] Electronically authenticated by: [id number] Y Date: 04/09/2025 14:44 Discharge Plan Discharge Chief Complaint: Abdominal Pain Clinical Impression: Calculus of kidney Patient Disposition: Home, Self-Care Prescriptions / Home Meds: New tramadol 50 mg tablet 50 mg PO TID PRN (Reason: pain) Qty: 7 0RF tamsulosin 0.4 mg capsule 0.4 mg PO DAILY Qty: 10 0RF ondansetron 4 mg tablet,disintegrating 4 mg PO Q8H PRN (Reason: nausea and vomiting) 4 Days Qty: 10 0RF No Action amlodipine 5 mg tablet 5 mg PO DAILY atorvastatin 40 mg tablet 40 mg PO DAILY estradiol 0.5 mg tablet 0.5 mg PO DAILY Rx Instructions: off 5 days; repeat cycle Hair, Skin and Nails (biotin) 10,000 mcg tablet,chewable PO magnesium glycinate 100 mg magnesium capsule PO DosoKap 137.5-200 mcg tablet 1 tab PO DAILY Print Language: Colombian Instructions: Kidney Stones (ED), How to Strain Your Urine (ED) Additional Instructions: Tylenol and ibuprofen as needed for any pain. May take Ultram as needed for severe pain. May take Zofran as needed for any nausea or vomiting. Take tamsulosin as prescribed -> frequency of urination to help you pass the stone. Stay hydrated and drink plenty of fluids this includes water. Follow-up with urology for reevaluation as discussed. Referrals: Hernesto Wesley DO [Primary Care Provider, Internal Medicine] - 1 week Yelena Matthews MD [Physician, Urology] - 1 week
[2025-04-09 13:43] LABS: Alanine Aminotransferase 27 U/L (14-59); Albumin Globulin Ratio 1.2; Albumin Level 4.5 g/dL (3.4-5.0); Alkaline Phosphatase 96 U/L (46-116); Anion Gap 14.3; Aspartate Amino Transferase 23 U/L (15-37); Blood Urea Nitrogen 15.0 mg/dL (7.0-18.0); Calcium 9.5 mg/dL (8.5-10.1); Carbon Dioxide 28.9 mmol/L (21.0-32.0); Chloride 103 mmol/L (98-107); Estimated GFR (African America >60 (>=60 mL/min/1.73m^2); Estimated GFR (Non-African Ame >60 (>=60 mL/min/1.73m^2); Globulin 3.7 g/dL; Glucose 123 mg/dL (74-106); Potassium 4.2 mmol/L (3.5-5.1); Sodium 142 mmol/L (136-145); Total Protein 8.2 g/dL (6.4-8.2)
[2025-04-09] MEDS: MORPHINE SULFATE 2 MG/ML SYRINGE IV (14:26)
[2025-04-09 14:27] VITALS: BP 135/68; PULSE 73; O2SAT 100
[2025-04-09 14:40] LABS: Glucose Urine UA NEGATIVE (NEGATIVE)
[2025-04-09 14:50] LABS: Cast Seen? NONE SEEN #/LPF (NONE SEEN); Crystals Seen? None Seen #/HPF (None Seen); Urine Culture Indicated NO
[2025-04-09] MEDS: FENTANYL CITRATE/PF 100 MCG/2 ML VIAL 50 MCG IV (15:25)
== END 2025-04-09 15:48 | disposition home or self-care (01) ==
PROVIDERS: Nurse Practitioner; Emergency Provider Emergency Medicine; PCP Internal Medicine
DX: N13.2 Hydronephrosis with renal and ureteral calculous obstruction (principal); Z90.49 Acquired absence of other specified parts of digestive tract; Z90.710 Acquired absence of both cervix and uterus; Z90.79 Acquired absence of other genital organ(s); Z90.722 Acquired absence of ovaries, bilateral
CPT/HCPCS: 36415; 74176; 80053; 81001; 85025; 96374; 96375; 99285; J1885; J2270; J2405; J3010

== ENCOUNTER 2025-09-23 08:41 | Outpatient (OUT) | payer BC, SELFPAY ==
--- OUTSIDE RECORDS SUMMARY | 2025-09-23 08:45 | XMS_ITS | Clinical Summary ---
Author Organization [facility] Address [address] [place] [address] Care Team Providers Care Customer Acquisition Manager Name Role Phone Enrique Gil Unavailable [phone] Allergies Active AllergyReactionsCriticalityNoted DateCommentsHydrocodone-AcetaminophenGI Upset04/23/2016 Medications MedicationSigDispense QuantityRefillsLast FilledStart DateEnd DateStatus Amphetamine-Dextroamphetamine 15 mg tablet Take by mouth once daily.Active Estradiol (ESTRACE) 0.5 mg tablet Take by mouth once daily.Active estrogens conjugated synthetic A (CENESTIN) 0.625 mg tablet Take by mouth once daily.Active Active Problems No known active problems Family History Medical HistoryRelationCommentsHeartFatherd. 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 Not on fileNot on fileNot on file Last Filed Vital Signs Vital SignReadingTime TakenCommentsBlood Nohpluic133/8708 8:30 AM EDT Dbwrg457105/10/2016 8:30 AM EDTTemperature--Respiratory Ffij9739 8:30 AM EDTOxygen Eczijhtglh97%05/10/2016 8:30 AM EDTInhaled Oxygen Concentration-- Nqpbwb36.2 kg (135 lb)04/23/2016 12:05 PM QUXBxmusj157.7 cm (5' 8 )04/23/2016 12:05 PM EDTBody Mass Index20.53004/23/2016 12:05 PM EDT Plan of Treatment Health MaintenanceDue DateLast DoneCommentsAnxiety Bfwtcsrur30/02/1984Depression Zsxhirftz57/02/1984HIV Pslmibpxb04/02/1984Hepatitis C Tkdjntlqx31/02/1984 DTaP,Tdap,Td Vaccine (1 - Tdap)1985Cervical Cancer Qmbxnbrdp92/02/1987 Mammogram Ivfbglytv10/02/2006CT Vlolojpiojkf39/02/2011Cologuard (FIT-DNA) 06/04/20110124Ovtghsjsmmr98/02/2011Colorectal Cancer Ftimwnfvw74/02/2011Diabetes Bzqsjltzx84/02/2011Fecal Occult Blood2011Lipid Rdpaxuagq13/02/2011 Tgychfzduekxd80/02/2011Pneumococcal Vaccine: 50+ (1 of 1 - PCV)2016 Shingrix Vaccine (1 of 2)2016Covid-19 Vaccine (1 - season) 2025Influenza Vaccine (#1)2025 Insurance Care Teams Team MemberRelationshipSpecialtyStart DateEnd Date Enrique Gilesh [address] [place] [address] Primary Staff PhysicianCardiology12/19/18
--- OUTSIDE RECORDS SUMMARY | 2025-09-23 08:45 | XMS_ITS | Clinical Summary ---
Author Organization [facility] Address [address] [place] [address] Care Team Providers Care Parts Cataloger Name Role Phone Unavailable Primary Care Provider Unavailabl e Allergies Active AllergyReactionsCriticalityNoted DateCommentsHydrocodone-AcetaminophenGI mabavaxjyor41/22/2016 Medications MedicationSigDispense QuantityRefillsLast FilledStart DateEnd DateStatus ciclopirox (Loprox) 0.77 % cream Indications:Other seborrheic dermatitisApply thin layer to affected area once a day, 30 day supply 30 g 11011/29/2023ctive metroNIDAZOLE (Metrolotion) 0.75 % lotion lotion Indications:Other rosaceaApply thin layer to face, once daily, 30 day supply 59 mL ctive Active Problems No known active problems Family History Medical HistoryRelationNameCommentsMelanomaNeg Hx Social History Tobacco UseTypesPacks/DayYears UsedDateSmoking Tobacco: NeverSmokeless Tobacco: Never Tobacco Cessation:Counseling Given: Not Answered CommentsUnknownSex and Gender InformationValueDate RecordedSex Assigned at BirthNot on fileLegal QbyEhragn48/18/2024 1:13 PM ESTGender IdentityNot on fileSexual OrientationNot on file Plan of Treatment Not on file Insurance
== END 2025-09-23 08:42 | disposition home or self-care (01) ==
PROVIDERS: PCP Internal Medicine; Visit Provider Nurse Practitioner Adult Health
DX: Z78.0 Asymptomatic menopausal state (principal)
CPT/HCPCS: 77080

== ENCOUNTER 2025-09-24 07:08 | Outpatient (OUT) | payer BC, SELFPAY ==
--- OUTSIDE RECORDS SUMMARY | 2025-09-24 07:13 | XMS_ITS | Clinical Summary ---
Author Organization [facility] Healthcare Address [address] [place] [place] [address] Care Team Providers Care Customer Order Clerk Name Role Phone Unavailable Primary Care Provider Unavailabl e Allergies Active AllergyReactionsCriticalityNoted DateCommentsHydrocodone-AcetaminophenGI /22/2016 Medications MedicationSigDispense QuantityRefillsLast FilledStart DateEnd DateStatus ciclopirox [...] InformationValueDate RecordedSex Assigned at BirthNot on fileLegal FhqArgfof50/18/2024 1:13 PM ESTGender IdentityNot on fileSexual OrientationNot on file Plan of Treatment Not on file Insurance
--- OUTSIDE RECORDS SUMMARY | 2025-09-24 07:13 | XMS_ITS | Clinical Summary ---
Author Organization [facility] Address [address] [place] [address] Care Team Providers Care Transport Operations Inspector Name Role Phone Enrique Gil Unavailable [phone] Allergies Active AllergyReactionsCriticalityNoted DateCommentsHydrocodone-AcetaminophenGI Upset04/23/2016 Medications MedicationSigDispense QuantityRefillsLast FilledStart DateEnd DateStatus Amphetamine-Dextroamphetamine 15 mg tablet Take by mouth once daily.Active Estradiol (ESTRACE) 0.5 mg tablet Take by mouth once daily.Active estrogens conjugated synthetic A (CENESTIN) 0.625 mg tablet Take by mouth once daily.Active Active Problems No known active problems Family History Medical HistoryRelationCommentsHeartFatherd. of [place] @ 48DiabetesMother HypertensionMotherRelationStatusCommentsFatherMother Social History Tobacco UseTypesPacks/DayYears UsedDateSmoking Tobacco: NeverAlcohol UseStandard Drinks/WeekCommentsNo0 (1 standard drink = 0.6 oz pure alcohol)Comments NoSex and Gender InformationValueDate RecordedSex Assigned at BirthNot on file Legal LcaEeeisz94/12/2016 1:32 PM EDTGender IdentityNot on fileSexual OrientationNot on fileOccupationIndustryJob Start DateJob End DateSelf Emloyed Not on fileNot on fileNot on file Last Filed Vital Signs Vital SignReadingTime TakenCommentsBlood Stkhautx542/8708 8:30 AM EDT Qelcm531905/10/2016 8:30 AM EDTTemperature--Respiratory Wwru2049 8:30 AM EDTOxygen Zmqqklygst61%05/10/2016 8:30 AM EDTInhaled Oxygen Concentration-- Pvxdty37.2 kg (135 lb)04/23/2016 12:05 PM WWVFpnqgq499.7 cm (5' 8 )04/23/2016 12:05 PM EDTBody Mass Index20.53004/23/2016 12:05 PM EDT Plan of Treatment Health MaintenanceDue DateLast DoneCommentsAnxiety Eobljqhgs51/02/1984Depression Zaknghvpu79/02/1984HIV Ktjmzsegg44/02/1984Hepatitis C Fahhvkrer93/02/1984 DTaP,Tdap,Td Vaccine (1 - Tdap)1985Cervical Cancer Gcgjbvomm20/02/1987 Mammogram Hsoyotcbq83/02/2006CT Aiggovgwppue59/02/2011Cologuard (FIT-DNA) 06/04/20114348Adlpkccoqlz20/02/2011Colorectal Cancer Cflnohims72/02/2011Diabetes Uosedrtii73/02/2011Fecal Occult Blood2011Lipid Gixkprfox98/02/2011 Mrxwskpncxlld99/02/2011Pneumococcal Vaccine: 50+ (1 of 1 - PCV)2016 Shingrix Vaccine (1 of 2)2016Covid-19 Vaccine (1 - season) 2025Influenza Vaccine (#1)2025RSV Vaccine (1 - 1-dose 75+ series) 2041 Insurance Care Teams Team MemberRelationshipSpecialtyStart DateEnd Date Enrique Gil [address] [place] [address] Primary Staff PhysicianCardiology12/19/18
[2025-09-24 08:22] LABS: Calcium 9.0 mg/dL (8.5-10.1); Cholesterol 137 mg/dL (<=200); Estimated GFR (African America >60 (>=60 mL/min/1.73m^2); Estimated GFR (Non-African Ame >60 (>=60 mL/min/1.73m^2); Glucose 102 mg/dL (74-106); HDL Cholesterol 58 mg/dL (40-60); Thyroid Stimulating Hormone 1.568 uIU/mL (0.358-3.740); Triglycerides 73 mg/dL (<=150); VLDL CHOLESTEROL 14.6 mg/dL
== END 2025-09-24 07:09 | disposition home or self-care (01) ==
LOC: LAB 07:10
PROVIDERS: PCP Internal Medicine; Visit Provider Nurse Practitioner Adult Health
DX: Z00.00 Encounter for general adult medical examination without abnormal findings (principal); Z13.820 Encounter for screening for osteoporosis
CPT/HCPCS: 36415; 80061; 82306; 82310; 82565; 82947; 84443